=== PATIENT | male | born 1940 | race Caucasian/White ===

== ENCOUNTER 2017-02-07 14:05 | Emergency (ER) | payer MEDICARE, BC ==
--- NOTE | 2017-02-07 14:50 | RAD ---
RIGHT ANKLE THREE VIEWS: History: 76-year-old male with right ankle pain following an injury. FINDINGS: There is some generalized soft tissue swelling of the lower leg and ankle. There is evidence for pes planus with multiple post-surgical jacques stabilizing the subtalar joints including the talar calcan eal joints as well as the calcaneal cuboid joint. There is soft tissue swelling over the anterior asp ect of the foot. Arterial vascular calcifications. Prominent arthrosis changes of the tibial talar cyrus int. No acute fracture. IMPRESSION: Status post subtalar effusion with multiple metallic post-surgical jcaques. Arthrosis changes of the tibiotalar joint. Diffuse soft tissue swelling. No evidence for acute fracture. POS: ALYSSA
[2017-02-07] MEDS ORDERED: HYDROcodone/Acetaminophen 5/325 mg Tablet ONE (15:43)
--- NOTE | 2017-02-07 15:45 | ULT ---
VENOUS DOPPLER ULTRASOUND OF THE RIGHT LOWER EXTREMITY 02/07/17 HISTORY: Right lower extremity pain and edema. TECHNIQUE: Fernando scale ultrasound with color flow and spectral doppler imaging of the deep venous system of the r ight lower extremity was performed. FINDINGS: There is good flow, compression and augmentation noted in the right common femoral, femoral, deep fem oral, popliteal, posterior tibial and greater saphenous veins. IMPRESSION: No evidence of DVT in the right lower extremity. POS: ALYSSA
[2017-02-07] MEDS ORDERED: Ibuprofen 200 MG TAB ONE (15:56)
== END 2017-02-07 16:18 | disposition home or self-care (01) ==
LOC: ERS 14:05
DX: L03.115 Cellulitis of right lower limb (principal); J44.9 Chronic obstructive pulmonary disease, unspecified; I10 Essential (primary) hypertension; F32.9 Major depressive disorder, single episode, unspecified

== ENCOUNTER 2018-11-19 12:25 | Emergency (ER) | payer MEDICARE ==
[2018-11-19 13:10] LABS: #Basophils 0.1 thou/uL (0.0-0.2); #Eosinphils 0.1 thou/uL (0.0-0.7); #Lymphocytes 0.9 thou/uL (1.20-3.40); #Monocytes 0.8 thou/uL (0.11-0.59); #Neutrophils 6.6 thou/uL (1.40-6.50); %Basophils 0.7 % (0.0-1.0); %Eosinophils 0.9 % (0.0-10.0); %Lymphocytes 10.8 % (21.0-51.0); %Monocytes 9.4 % (0.0-10.0); %Neutrophils 78.3 % (42.0-75.0); Hemoglobin 11.9 g/dL (14.0-18.0); Mean Corpuscular HGB CONC 34.2 g/dL (32.0-36.0); Platelet Count 358 thou/uL (130-400); RBC Distribution Width 11.8 % (11.5-14.5); Red Blood Cell (RBC) Count 3.31 mill/uL (4.70-6.10); White Blood Cell (WBC) Count 8.5 thou/uL (4.8-10.8)
--- NOTE | 2018-11-19 13:16 | RAD ---
AP CHEST: Date: 11/19/18 HISTORY: Cellulitis. COMPARISON: 08/11/16. FINDINGS: There is streaky atelectasis and/or infiltrate in both lung bases, similar in appearance to the prior exam. Upper lung choi remain clear. Heart and mediastinum unremarkable with aortic calcification a gain noted. IMPRESSION: Bibasilar atelectasis and/or infiltrates again noted. POS: OFF
[2018-11-19 13:35] LABS: ALT (SGPT) 13 U/L (8-55); AST (SGOT) 21 U/L (5-34); Albumin 3.5 g/dL (3.4-4.8); Alkaline Phosphatase 70 U/L (40-150); Anion Gap 11 mmol/L (10-20); BUN (Urea Nitrogen) 27 mg/dL (8.4-25.7); Bilirubin, Total 0.8 mg/dL (0.2-1.2); Calc. Creatinine Clearance 0 mL/min (70-130); Carbon Dioxide 27 mmol/L (23-31); Chloride 99 mmol/L (98-107); Estimated GFR-MDRD 56; Globulin 2.5 g/dL (2.4-3.5); Glucose 108 mg/dL (83-110); Potassium 3.7 mmol/L (3.5-5.1); Sodium 133 mmol/L (136-145)
[2018-11-19 14:09] LABS: Bilirubin Negative (Negative); Blood, Urine Negative (Negative); Clarity Clear (Clear); Glucose, Urine (Dipstick) Normal (Negative); Leukocyte Negative Leu/uL (Negative); Nitrite Negative (Negative); Protein, Urine (Dipstick) Negative (Neg-Trace); Urobilinogen Normal mg/dL (Less than 2)
[2018-11-19] MEDS ORDERED: Bacitracin 1 PK ONE (15:28)
== END 2018-11-19 18:18 ==
LOC: ERS 12:25
DX: M79.89 Other specified soft tissue disorders (principal); I10 Essential (primary) hypertension; I71.4 Abdominal aortic aneurysm, without rupture; J44.9 Chronic obstructive pulmonary disease, unspecified; F32.9 Major depressive disorder, single episode, unspecified; F03.90 Unspecified dementia, unspecified severity, without behavioral disturbance, psychotic disturbance, mood disturbance, and anxiety
CPT/HCPCS: 36415; 71045; 80053; 80061; 81003; 83605; 85027; 87040; 87070; 87086; 87149; 87205

== ENCOUNTER 2018-12-05 09:55 | Emergency (ER) | payer MEDICARE, BC ==
--- NOTE | 2018-12-05 11:32 | RAD ---
EXAM: Right hip: 2 views INDICATIONS: Pain COMPARISON: 09/03/2018 FINDINGS: Right hip prosthesis again noted. Fracture. No evidence of loosening. IMPRESSION: No acute finding
[2018-12-05] MEDS ORDERED: Acetaminophen/Codeine 30-300mg Tablet ONE (12:04)
--- NOTE | 2018-12-05 13:29 | CT ---
CT PELVIS WITHOUT CONTRAST: Date: 12/05/18 INDICATION: Fall with injury to hips. FINDINGS: Right hip prosthesis. Components appear in adequate position and alignment. Moderate degenerative melonie nge at the left hip. No acute fracture identified. Review of soft tissues reveal mild bladder distention. There is an anterior abdominal wall hernia in the right lower abdomen. Mesentery and small bowel loops herniate through this defect into the subcut aneous tissues. There is no evidence of bowel obstruction or strangulation. Large amount of dense stool in the rectum suggests fecal impaction. There is mild mural thickening wh ich could represent early changes of stercoral colitis. IMPRESSION: 1. No evidence of acute pelvic fracture. 2. Dense stool in a dilated rectum suggesting fecal impaction with early stercoral colitis. 3. Anterior abdominal wall hernia on the right in the lower abdomen, as described. 4. Urinary bladder distention. POS: ALYSSA
--- NOTE | 2018-12-06 08:26 | RAD ---
EXAM: XR Pelvis AP STANDARD PROVIDED CLINICAL HISTORY: Bilateral leg pain and right hip pain. COMPARISON: 10/29/2018 FINDINGS: Right total hip prosthesis is again noted. No obvious hardware complication is seen. The left hip is obtained in external rotation which limits evaluation. No obvious fracture is seen. No dislocation is appreciated. Vascular calcifications and phleboliths again overlie the pelvis. IMPRESSION: 1. No acute osseous abnormality is seen. 2. Right total hip prosthesis again noted.
== END 2018-12-05 14:51 | disposition home or self-care (01) ==
LOC: ERS 09:55
DX: K59.00 Constipation, unspecified (principal); M25.551 Pain in right hip; I10 Essential (primary) hypertension; F03.90 Unspecified dementia, unspecified severity, without behavioral disturbance, psychotic disturbance, mood disturbance, and anxiety; J44.9 Chronic obstructive pulmonary disease, unspecified; F32.9 Major depressive disorder, single episode, unspecified
CPT/HCPCS: 72170; 72192

== ENCOUNTER 2019-02-21 08:15 | Outpatient (CLI) | payer MEDICARE, BC ==
--- NOTE | 2019-02-21 09:11 | MRI ---
MR the lumbar spine without contrast INDICATION: History of severe low back pain with bilateral leg weakness and history of fall COMPARISON: CT of the pelvis dated December 05, 2018 and the lumbar spine radiograph dated October 29 019 TECHNIQUE: Multiplanar multisequence MR images were obtained of lumbar spine without IV contrast. FINDINGS: Bone marrow: There is a moderate wedge compression abnormality of L3 that was demonstrated on the rad iograph in October 2018; however, there is some mild supine. Subendplate edema involving the L3 compression fracture with worsening loss of height since the prior radiograph there is some edema ext ending into the pedicles at L3 with some edematous changes seen surrounding the facet complexes at L2-3. No new fracture is evident. There is ankylosis of the L1-L2 intervertebral level. Distal spinal cord and conus: Normal. The conus seen to terminate at L1. Visualized retroperitoneum and paraspinal soft tissues: There is bilateral moderate hydronephrosis an d hydroureter which was partially seen on the comparison CT the pelvis dated 12/05/[address] the abdomen and pelvis dated August 27, 2016. There is stable prominent distention of the bladder. Vertebral levels: L5-S1: There is a broad-based disc osteophyte complex with facet hypertrophy inducing severe central canal narrowing and moderate bilateral neural foraminal narrowing.. L4-5: There is a broad-based disc osteophyte complex with ligamentum flavum hypertrophy and facet hyp ertrophy inducing severe central canal narrowing and moderate to severe bilateral neural foraminal narrowing. L3-4: There is a broad-based disc osteophyte complex with facet hypertrophy inducing moderate central canal narrowing with severe bilateral neural foraminal narrowing. L2-3: There is some mild retropulsion of bone fragments from the posterior superior margin of L3 in a ddition to disc osteophyte complex at L2-3 inducing moderate central canal narrowing with severe bilateral neural foraminal narrowing. L1-L2: At L1-L2 there is a broad-based osteophyte complex causing mild narrowing of the central canal with moderate narrowing of the neural foramina bilaterally. T12-L1: There is a broad-based disc osteophyte complex with facet hypertrophy inducing mild central c anal narrowing and cooe-ot-cjxtdxly bilateral neural foraminal narrowing IMPRESSION: 1. Severe spondylosis of the lumbar spine with multilevel central canal and neural foraminal narrowin g. The central canal narrowing is most severe at L4-5 and L5-S1 where there is severe central canal narrowing present. There is moderate central canal narrowing present at L1-L2 and L2-L3. 2. Multilevel prominent neural foraminal narrowing as detailed above. 3. Acute on chronic L3 wedge compression fracture with further loss of height in the vertebral body w hen compared to the prior lumbar radiograph in October 2018. There is approximately a 50% loss in height along the anterior and central aspect of the vertebral body. 4. Stable chronic moderate bilateral hydronephrosis and hydroureter with prominent distention the bernarda dder partially visualized on a CT of the pelvis dated 12/05/2018. This was also present on a CTA of the abdomen and pelvis performed on August 27, 2016. Findings are suspicious of sequela of chronic blad swati outlet obstruction.
== END 2019-02-21 08:16 | disposition home or self-care (01) ==
LOC: MRI 08:15
PROVIDERS: ATTEND Family Medicine
DX: Z01.818 Encounter for other preprocedural examination (principal); M47.816 Spondylosis without myelopathy or radiculopathy, lumbar region; M48.061 Spinal stenosis, lumbar region without neurogenic claudication; M48.07 Spinal stenosis, lumbosacral region; S32.030D Wedge compression fracture of third lumbar vertebra, subsequent encounter for fracture with routine healing; N13.30 Unspecified hydronephrosis; N13.4 Hydroureter
CPT/HCPCS: 72148

== ENCOUNTER 2019-03-03 11:56 | Inpatient (IN) | payer MEDICARE, BC ==
[2019-03-03 12:38] LABS: #Basophils 0.1 thou/uL (0.0-0.2); #Eosinphils 0.3 thou/uL (0.0-0.7); #Lymphocytes 1.5 thou/uL (1.20-3.40); #Monocytes 0.8 thou/uL (0.11-0.59); #Neutrophils 6.2 thou/uL (1.40-6.50); %Basophils 0.6 % (0.0-1.0); %Eosinophils 3.1 % (0.0-10.0); %Lymphocytes 17.2 % (21.0-51.0); %Monocytes 8.6 % (0.0-10.0); %Neutrophils 70.5 % (42.0-75.0); Hemoglobin 13.8 g/dL (14.0-18.0); Mean Corpuscular HGB CONC 33.2 g/dL (32.0-36.0); Mean Corpuscular Hemoglobin 34.4 pg (27.0-31.0); Mean Platelet Volume 6.3 fL (7.4-10.4); Platelet Count 412 thou/uL (130-400); RBC Distribution Width 12.4 % (11.5-14.5); Red Blood Cell (RBC) Count 4.02 mill/uL (4.70-6.10); White Blood Cell (WBC) Count 8.8 thou/uL (4.8-10.8)
--- NOTE | 2019-03-03 12:57 | RAD ---
3 views right foot: 03/03/2019 COMPARISON: None HISTORY: Prominent foot wound with exposed bone FINDINGS: The bones are demineralized, limiting detailed assessment. There is a pes planus deformity. Severe subtalar joint degenerative change. There is fusion at the daly btalar joint as well. Postoperative metallic hardware overlies the hindfoot and midfoot. There is a suggestion of a prominent skin defect adjacent to the fifth metatarsal phalangeal joint. T here is a suggestion of possible bone destruction centered at the fifth metatarsal phalangeal joint, which may signify osteomyelitis/septic arthritis. MRI is suggested for full assessment. Of note, there is prominent dorsal soft tissue swelling involving the midfoot and forefoot. This sugg ests associated cellulitis. Detailed assessment at the level of the fifth metatarsal phalangeal joint is limited secondary to rey ear radiopaque artifact, which may be on the skin surface. IMPRESSION: Findings suspicious for possible osteomyelitis and/or septic arthritis centered at the fi fth metatarsal phalangeal joint. MRI suggested.
[2019-03-03 13:08] LABS: AST (SGOT) 20 U/L (5-34); Albumin 3.7 g/dL (3.4-4.8); Anion Gap 11 mmol/L (10-20); Bilirubin, Total 0.7 mg/dL (0.2-1.2); Calc. Creatinine Clearance 0 mL/min (70-130); Calcium 9.7 mg/dL (7.8-10.44); Carbon Dioxide 30 mmol/L (23-31); Chloride 97 mmol/L (98-107); Estimated GFR-MDRD 90; Globulin 3.6 g/dL (2.4-3.5); Potassium 4.1 mmol/L (3.5-5.1); Protein, Total 7.3 g/dL (5.8-8.1); Sodium 134 mmol/L (136-145)
[2019-03-03 13:19] LABS: ALT (SGPT) 12 U/L (8-55); Alkaline Phosphatase 84 U/L (40-110); BUN (Urea Nitrogen) 17 mg/dL (8.4-25.7); Glucose 99 mg/dL (83-110)
[2019-03-03] MEDS ORDERED: Cefepime 2 GM VIAL ONE (15:55)
[2019-03-03] MEDS ORDERED: Senokot S 8.6-50 MG TAB PO PRN (16:10)
[2019-03-03] MEDS ORDERED: Fentanyl 100 MCG/2 ML VIAL ONE (17:05)
[2019-03-03] MEDS ORDERED: Ondansetron PF 4 MG/2 ML Vial ONE (17:05)
--- NOTE | 2019-03-03 19:20 | PDOC.HHP ---
Hospitalist HPI - History of Present Illness Right foot wound History of Present Illness: Patient is a poor historian, family at the bedside is main source of information , patient has dementia and mentation is at baseline per family. Patient has been going to wound care doctor in [place] for several month, every other week. Wound care nurses at the [facility] change dressing MWF. Today, patient went to Wound care doctor appointment and then was referred here for evaluation as wound looks worse than before. Concern for infection and osteomyelitis. Has PVD, had wounds to left foot but those have healed. PMH: BPH, HTN, peripheral neuropathy, dementia, dyslipidemia, PVD, Afib, SVT, COPD, GERD, renal cysts ED Course: XRAY of right foot concerning for osteomyelitis, no elevated WBC, given cefepime and vancomycin in the ED. Will be admitted for IV ABX and MRI. Hospitalist ROS - Review of Systems ROS unobtainable: due to mental status Constitutional: denies: fever, chills, sweats, weakness, malaise, other Musculoskeletal: reports: foot pain (Patient is pleasantly confused, limited history obtained from family member at bedside) Hospitalist History - Past Medical History Source: longterm record Cardiac: reports: AFIB, CAD, HTN, Hyperlipidemia Pulmonary: reports: COPD, hypertension BUSINESS CONTINUITY PLANNER: reports: Dementia Gastrointestinal: reports: GERD Musculoskeletal: reports: Chronic low back pain - Past Surgical History Past Surgical History: reports: Cystoscopy, Total Knee Replacement Other Surgical History: triple AAA repair, bowel resection - Social History Smoking Status: Never smoker Drugs: reports: none Living Situation: Skilled Nursing Activity level: wheelchair bound - Exam General Appearance: awake alert Eye: PERRL, anicteric sclera ENT: normocephalic atraumatic, dry oral mucosa Neck: supple, no JVD Heart: RRR, no murmur Respiratory: CTAB, normal chest expansion Gastrointestinal: soft, non-tender Extremities: 1+ LE edema Extremities - other findings: LE dusky, 4cm open malodorous wound to lateral right foot Skin: normal turgor Neurological: normal sensation to touch Musculoskeletal: normal tone, normal strength Psychiatric: oriented to person Psychiatric - other findings: pleasantly confused Hospitalist Results - Labs Result Diagrams: 03/03/19 12:20 03/03/19 12:20 Lab results: WBC 8.8 thou/uL (4.8-10.8) 12/30/19 12:20 Hgb 13.8 g/dL (14.0-18.0) L 03/03/19 12:20 Hct 41.6 % (42.0-52.0) L 03/03/19 12:20 MCV 104.0 fL (78.0-98.0) H 03/03/19 12:20 Plt Count 412 thou/uL (130-400) H 03/03/19 12:20 Neutrophils % 70.5 % (42.0-75.0) 03/03/19 12:20 ESR Westergren 29 mm/hr (Less than 20) 03/03/19 12:20 Sodium 134 mmol/L (136-145) L 03/03/19 12:20 Potassium 4.1 mmol/L (3.5-5.1) 03/03/19 12:20 Chloride 97 mmol/L (98-107) L 03/03/19 12:20 Carbon Dioxide 30 mmol/L (23-31) 03/03/19 12:20 BUN 17 mg/dL (8.4-25.7) 03/03/19 12:20 Creatinine 0.82 mg/dL (0.7-1.3) 03/03/19 12:20 Glucose 99 mg/dL (83-110) 03/03/19 12:20 Calcium 9.7 mg/dL (7.8-10.44) 03/03/19 12:20 Total Bilirubin 0.7 mg/dL (0.2-1.2) 03/03/19 12:20 AST 20 U/L (5-34) 03/03/19 12:20 ALT 12 U/L (8-55) 03/03/19 12:20 Alkaline Phosphatase 84 U/L (40-110) 03/03/19 12:20 C-Reactive Protein 1.79 mg/dL (= or < 0.5) H 03/03/19 12:20 Serum Total Protein 7.3 g/dL (5.8-8.1) 03/03/19 12:20 Albumin 3.7 g/dL (3.4-4.8) 03/03/19 12:20 Hospitalist H&P A/P - Problem (1) Dementia Code(s): F03.90 - UNSPECIFIED DEMENTIA WITHOUT BEHAVIORAL DISTURBANCE Status: Chronic (2) Wound of foot Code(s): S91.309A - UNSPECIFIED OPEN WOUND, UNSPECIFIED FOOT, INITIAL ENCOUNTER Status: Acute (3) Anxiety Code(s): F41.9 - ANXIETY DISORDER, UNSPECIFIED Status: Chronic (4) Dyslipidemia Code(s): E78.5 - HYPERLIPIDEMIA, UNSPECIFIED Status: Chronic (5) HTN (hypertension) Code(s): I10 - ESSENTIAL (PRIMARY) HYPERTENSION Status: Chronic Qualifiers: Hypertension type: essential hypertension Qualified Code(s): I10 - Essential (primary) hypertension (6) BPH (benign prostatic hyperplasia) Code(s): N40.0 - BENIGN PROSTATIC HYPERPLASIA WITHOUT LOWER URINRY TRACT SYMP Status: Acute - Plan Plan: Continue ABX - Cefepime and Vancomycin, blood and wound cultures pending MRI right foot, Dr. Faye consulted, Continue home meds once reconciled IV hydration, NS 75mls/hr Wound care consult GI and DVT prevention
[2019-03-03 19:29] VITALS: BMI 30.5
[2019-03-03] MEDS: Sodium Chloride 0.9% 1,000 ML IV SCH (19:32)
[2019-03-03] MEDS: Acetaminophen 325 MG TAB PO PRN (19:37)
[2019-03-03] MEDS: Famotidine 20 MG TAB PO SCH (19:37)
[2019-03-04] MEDS: Acetaminophen/Codeine 30-300mg Tablet PO PRN ×2 (01:19→20:12)
[2019-03-04] MEDS: Cefepime 2 GM in Sodium Chloride 0.9% 100 ML IVPB SCH ×2 (04:05→16:34)
[2019-03-04] MEDS: Sodium Chloride 0.9% 1,000 ML IV SCH ×2 (06:06→16:34)
[2019-03-04 06:21] LABS: #Basophils 0.1 thou/uL (0.0-0.2); #Eosinphils 0.5 thou/uL (0.0-0.7); #Lymphocytes 1.4 thou/uL (1.20-3.40); #Monocytes 0.9 thou/uL (0.11-0.59); #Neutrophils 4.4 thou/uL (1.40-6.50); %Eosinophils 6.4 % (0.0-10.0); %Lymphocytes 18.8 % (21.0-51.0); %Monocytes 12.7 % (0.0-10.0); Hemoglobin 10.9 g/dL (14.0-18.0); Mean Corpuscular HGB CONC 30.3 g/dL (32.0-36.0); Mean Corpuscular Hemoglobin 31.7 pg (27.0-31.0); Platelet Count 370 thou/uL (130-400); RBC Distribution Width 12.4 % (11.5-14.5); Red Blood Cell (RBC) Count 3.46 mill/uL (4.70-6.10); White Blood Cell (WBC) Count 7.2 thou/uL (4.8-10.8)
[2019-03-04 06:40] LABS: Anion Gap 10 mmol/L (10-20); BUN (Urea Nitrogen) 16 mg/dL (8.4-25.7); Calc. Creatinine Clearance 120 mL/min (70-130); Calcium 8.7 mg/dL (7.8-10.44); Carbon Dioxide 26 mmol/L (23-31); Chloride 106 mmol/L (98-107); Estimated GFR-MDRD Greater than 90; Glucose 107 mg/dL (83-110); Potassium 3.8 mmol/L (3.5-5.1); Sodium 138 mmol/L (136-145)
[2019-03-04] MEDS: Famotidine 20 MG TAB PO SCH ×2 (07:58→20:11)
[2019-03-04] MEDS: Amiodarone 200 MG TAB PO SCH (07:58)
[2019-03-04] MEDS: Escitalopram Oxalate 10 mg Tablet PO SCH (07:58)
[2019-03-04] MEDS: Hydrochlorothiazide 25 MG TAB PO SCH (07:58)
[2019-03-04] MEDS: Aspirin Chewable 81 MG TAB PO SCH (07:58)
[2019-03-04] MEDS: Enoxaparin Sodium 40 MG/0.4 ML SYRINGE SC SCH (08:01)
[2019-03-04] MEDS ORDERED: Docusate 100 MG CAP PO PRN (08:57)
--- NOTE | 2019-03-04 09:10 | PDOC.HOSPP ---
- Subjective Subjective: Mr. Anderson is lying down comfortably in bed. Right foot wound foul smelling. No fever, chills, nausea, vomiting reported at night. - Objective Vital Signs & Weight: Vital Signs (12 hours) Temp Pulse Resp BP BP Pulse Ox 03/04/19 07:31 98.2 F 65 20 134/79 97 03/04/19 05:00 97.8 F 58 L 18 107/63 97 03/04/19 00:00 98.2 F 66 20 111/65 96 Weight Weight 225 lb 4.8 oz I&O: 03/03/19 03/04/19 03/05/19 06:59 06:59 06:59 Intake Total 1800 Balance 1800 Result Diagrams: 03/04/19 05:27 03/04/19 05:27 Hospitalist ROS - Review of Systems Constitutional: denies: fever, chills, sweats, weakness, malaise, other Respiratory: denies: cough, dry, shortness of breath, hemoptysis, SOB with excertion, pleuritic pain, sputum, wheezing, other Cardiovascular: denies: chest pain, palpitations, orthopnea, paroxysmal noc. dyspnea, edema, light headedness, other Gastrointestinal: denies: nausea, vomiting, abdominal pain, diarrhea, constipation, melena, hematochezia, other - Medication Medications: Active Medications Generic Name Dose Route Start Last Admin Trade Name Freq PRN Reason Stop Dose Admin Acetaminophen 650 mg 03/03/19 16:10 03/03/19 19:37 Tylenol PO 650 mg Q4H PRN Administration Headache/Fever/Mild Pain (1-3) Acetaminophen/Codeine Phosphate 1 tab 03/03/19 22:47 03/04/19 01:19 Tylenol #3 PO 1 tab Q6HR PRN Administration Moderate to Severe Pain (6-10) Amiodarone HCl 100 mg 03/04/19 09:00 03/04/19 07:58 Cordarone PO 100 mg QAM JOSE Administration Aspirin 81 mg 03/04/19 09:00 03/04/19 07:58 Aspirin Chewable PO 81 mg DAILY JOSE Administration Enoxaparin Sodium 40 mg 03/04/19 09:00 03/04/19 08:01 Lovenox SC 40 mg 0900 JOSE Administration Escitalopram Oxalate 5 mg 03/04/19 09:00 03/04/19 07:58 Lexapro PO 5 mg DAILY JOSE Administration Famotidine 20 mg 03/03/19 21:00 03/04/19 07:58 Pepcid PO 20 mg BID JOSE Administration Hydrochlorothiazide 25 mg 03/04/19 09:00 03/04/19 07:58 Hydrochlorothiazide PO 25 mg DAILY JOSE Administration Sodium Chloride 1,000 mls @ 75 mls/hr 03/03/19 16:15 03/04/19 06:06 Normal Saline 0.9% IV Not Given .[id number] JOSE Cefepime HCl 2 gm/ Sodium 100 mls @ 200 mls/hr 03/04/19 04:00 03/04/19 04:05 Chloride IVPB 100 mls 0400,1600 JOSE Administration Sodium Chloride 10 ml 03/03/19 16:10 03/03/19 19:46 Flush - Normal Saline IVF 10 ml PRN PRN Administration Saline Flush - Exam General Appearance: NAD, awake alert Eye: PERRL, anicteric sclera ENT: normocephalic atraumatic, no oropharyngeal lesions, moist mucosa Neck: supple, symmetric, no JVD, no thyromegaly, no lymphadenopathy, no carotid bruit Heart: RRR, no murmur, no gallops, no rubs, normal peripheral pulses Respiratory: CTAB, no wheezes, no rales, no ronchi, normal chest expansion, no tachypnea, normal percussion Gastrointestinal: soft, non-tender, non-distended, normal bowel sounds, no palpable masses, no hepatomegaly, no splenomegaly, no bruit Extremities - other findings: Right food ulcer, lateral, base of 5th toe, foul smelling, surrounding red Skin: normal turgor, no rashes Neurological: cranial nerve grossly intact, normal sensation to touch, no weakness, no focal deficits, no new deficit Musculoskeletal: normal tone, normal strength, no muscle wasting Psychiatric: normal affect, normal behavior, A&O x 3 Hosp A/P (1) Wound of foot Code(s): S91.309A - UNSPECIFIED OPEN WOUND, UNSPECIFIED FOOT, INITIAL ENCOUNTER Status: Acute Plan: Possible osteo on XR of foot vs. septic arthritis (2) Dementia Code(s): F03.90 - UNSPECIFIED DEMENTIA WITHOUT BEHAVIORAL DISTURBANCE Status: Chronic (3) BPH (benign prostatic hyperplasia) Code(s): N40.0 - BENIGN PROSTATIC HYPERPLASIA WITHOUT LOWER URINRY TRACT SYMP Status: Chronic (4) Atrial fibrillation with controlled ventricular response Code(s): I48.91 - UNSPECIFIED ATRIAL FIBRILLATION Status: Chronic (5) HTN (hypertension) Code(s): I10 - ESSENTIAL (PRIMARY) HYPERTENSION Status: Chronic Qualifiers: Hypertension type: essential hypertension Qualified Code(s): I10 - Essential (primary) hypertension - Plan Wound foul smelling and necrotic, XR suggestive of possible osteo/septic foot. Patient unable to lay still in MRI, has dementia at baseline Coordinate further management as per surgery and infectious disease specialist Wound culture showing multiple subspecies, following blood culture Continue Vancomycin and Cefepime Continue home BPH meds Continue home anti-hypertensive medications Continue wound care DVT Prophyalxis: Lovenox Code Statu: Full Dispo: Pending further reccs from surgery and ID teams. Continue eval and tx at this time.
[2019-03-04] MEDS: Acetaminophen 325 MG TAB PO PRN (13:09)
[2019-03-04] MEDS: Valsartan 80 MG TAB PO SCH (13:10)
[2019-03-04] MEDS ORDERED: Polyvinyl Alcohol 1.4%/Povidone 0.6% Opth Drops EA EYE PRN (15:00)
--- NOTE | 2019-03-04 16:11 | CON ---
DATE OF CONSULTATION: REASON FOR CONSULTATION: Ulcer of right foot with exposed bone, inflammatory changes. HISTORY OF PRESENT ILLNESS: An 79-year-old with history of BPH, hypertension, urinary retention, and dementia most likely due to peripheral vascular disease with previous AAA repair, who has had a chronic ulcer in the right foot and developed bone exposure associated with gangrenous changes and he was admitted for management. He does not recall much because of his dementia. He could not tell me where he was or what the reason he was in the hospital. He denied headaches. No dyspnea or chest pain. No abdominal pain. He did have pain in the right foot when the area was pressed. No vomiting or diarrhea. 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 SOCIAL HISTORY: He lives in the [place]. Could not remember any more of his history. No smoking reported in the note. ALLERGIES: HYDROCODONE. FAMILY HISTORY: Noncontributory. CURRENT MEDICATIONS: 1. Cordarone. 2. Aspirin. 3. Lipitor. 4. Cefepime. 5. Enoxaparin. 6. Lovenox. 7. Pepcid. 8. Valsartan. 9. Vancomycin. PHYSICAL EXAMINATION: VITAL SIGNS: T-max 98.2, blood pressure 117/56, pulse 58, respirations 18 to 22 , O2 saturation 98. GENERAL: Awake and alert. Does not appear in distress, is oriented, but not agitated, follows commands, pleasant. SKIN: Areas of mild erythema in the lower extremities, probably associated with stasis changes. He had this irregular shaped ulcer with necrotic base and wide area of a bone exposure at the fifth metatarsal head, right foot. Surrounding erythema undermining. No lymphadenopathy. Ocular movements conjugate. Oral cavity is not remarkable. NECK: Supple. No jugular vein distention. LUNGS: Symmetric. Clear breath sounds. HEART: S1 and S2, regular rate. No S3 or S4. ABDOMEN: Soft, not distended or tender. Question of bladder distention. No organomegaly or ascites. EXTREMITIES: I could not identify popliteal pulses or dorsalis pedis, looks like they are dopplerable only. He is diffusely weak. He is able to move extremities on command. NEUROLOGIC: He knows his name, but that is the extent of his ability to orientate himself. Recollection is very poor and he has difficulty in finding words. LABORATORY DATA: Sodium 134 and 138. Creatinine is normal. Liver profile normal. CRP 1.79, albumin 3.7. White cell count is 8.8 and 7.2, hemoglobin 10.9, MCV 105, platelet count 370 with 61% neutrophils. Microbiology with gram-negative armen from the foot ulcer culture. Blood cultures, no growth thus far. IMAGING STUDIES: Foot x-ray from yesterday with the bone destruction of the fifth metatarsal head. ASSESSMENT: Chronic ulcer of right foot fifth MPJ, skin site with bone exposure and gangrene, peripheral vascular disease, prior AAA repair, dementia. DISCUSSION: The patient will need a vascular study, but this is heading towards amputation. He is at risk for BK amputation depending on the results of the vascular study. Add Flagyl to current regimen. Continue remainder of antimicrobials, but those are just ancillary interventions, so the mainstay will be surgical radical procedure. We will have to postpone this until we have results of his vascular study, may need an angiogram. His last one was done in 2017 and it showed adequate blood flow, although small vessel disease was noted below the level of the popliteal arteries. Job ID: [id number] [facility]
[2019-03-04] MEDS ORDERED: traMADol HCl 50 MG TAB PO PRN (16:57)
[2019-03-04 17:53] LABS: RBC/HPF 0-3 HPF (0-3); Squamous Epithelial 0-3 HPF (0-3)
[2019-03-04 17:56] LABS: Bilirubin Negative (Negative); Blood, Urine Negative (Negative); Glucose, Urine (Dipstick) Negative (Negative); Leukocyte Trace (Negative); Nitrite Negative (Negative); Protein, Urine (Dipstick) Negative (Neg-Trace); Urobilinogen 0.2 mg/dL (Less than 2)
--- NOTE | 2019-03-04 17:57 | CON ---
DATE OF CONSULTATION: HISTORY OF PRESENT ILLNESS: Alonso Anderson is an 79-year-old male patient, senior living resident, who wants to get back to the senior living as soon as possible. The patient has developed a wound over his lateral right foot. X-rays demonstrating osteomyelitis with metatarsal head exposed through a large wound. He has palpable pedal pulses. He is on vancomycin and cefepime. He is not a diabetic. Plan is amputation of the right fifth toe and metatarsal wound left open for healing by secondary intention wound VAC application. He can be discharged home on oral antibiotics. The patient is relatively immobile and this is probably a combination of immobility and decubitus problems. He is at risk for other such problems in his left foot. ALLERGIES: HYDROCODONE. SOCIAL HISTORY: Tobacco cessation many years ago. Alcohol cessation many years ago. HOME MEDICATIONS: 1. Flomax. 2. Tylenol. 3. Fleet enema. 4. Vitamin C. 5. Colace. 6. Amiodarone. 7. Ecotrin 81 mg a day. 8. Potassium chloride daily. 9. Escitalopram oxalate daily. 10. Melatonin. 11. Hydrocortisone topical cream. 12. Benadryl orally. PAST SURGICAL HISTORY: Hip replacement, bilateral knee replacements, AAA repair, and bowel resection. PAST MEDICAL HISTORY: BPH, hypertension, neuropathy, dementia, history of AAA, COPD, venous insufficiency, dyslipidemia, GERD, and poor historian. Echocardiogram on 08/04/2016, 65% EF, normal LV function, no significant valvular disease. Sleep apnea and hypertension. No history of heart disease known. PHYSICAL EXAMINATION: VITAL SIGNS: 6 feet tall, 225 pounds, and 30 BMI. 98.3, 55, and 129/54. LUNGS: Clear to auscultation. CARDIAC: Regular rate and rhythm without murmur or gallop. ABDOMEN: Soft and obese. EXTREMITIES: Palpable pedal pulses. Right lateral foot 3 to 4 cm open wound with exposed metatarsal head fifth. ASSESSMENT AND PLAN: Osteomyelitis right fifth metatarsal. Plan amputation of the right fifth toe and other toes as indicated. He understands risks and benefits, consent. Wound VAC will be applied postoperatively. He can be discharged home with oral antibiotics as an outpatient and inpatient, wound care in the senior living with followup in my office in 2 to 3 weeks. Job ID: [id number]
[2019-03-04 17:58] LABS: Clarity Hazy (Clear)
[2019-03-04 18:07] LABS: Bacteria/HPF 2+ HPF (None Seen)
[2019-03-04 18:08] LABS: Mucous/LPF 1+ LPF (<2+)
[2019-03-04] MEDS ORDERED: Vancomycin 1.5 GRAM/300 ML BAG 1.5 GM in Premix Bag 1 BAG IVPB SCH (20:00)
[2019-03-04] MEDS: metroNIDAZOLE 500 MG TAB PO SCH (20:11)
[2019-03-04] MEDS: Atorvastatin Calcium 10 MG TAB PO SCH (20:12)
[2019-03-04] MEDS: Tamsulosin HCl 0.4 MG CAP PO SCH (20:12)
[2019-03-04] MEDS ORDERED: Prevnar 13-Val Conj/PF 0.5 ML SYRINGE IM ONE (21:00)
[2019-03-04] MEDS: traMADol HCl 50 MG TAB PO PRN (21:33)
[2019-03-05] MEDS: Cefepime 2 GM in Sodium Chloride 0.9% 100 ML IVPB SCH ×2 (03:15→16:48)
[2019-03-05] MEDS: traMADol HCl 50 MG TAB PO PRN (04:53)
--- NOTE | 2019-03-05 08:15 | ULT ---
EXAM: Right lower extremity arterial ultrasound HISTORY: Peripheral vascular disease and right foot ulcer with bone exposure COMPARISON: None TECHNIQUE: Multiplanar grayscale and color Doppler images were obtained and a right lower extremity a rterial ultrasound. Spectral analysis of the Doppler waveforms were performed. FINDINGS: No significant calcified plaque is seen in right lower extremity. Right lower extremity: Common femoral artery: Biphasic Profundofemoral artery: Monophasic Superficial femoral artery: Biphasic Popliteal artery: Monophasic Anterior tibial artery: Monophasic Posterior tibial artery: Biphasic Dorsalis pedis artery: Unable to be visualized secondary to overlying bandages. No significant increase in velocity is seen from a more proximal to a distal segment to suggest an ar ea of focal atherosclerotic disease. IMPRESSION: Diffuse abnormal waveforms suggest diffuse atherosclerotic disease. No focal increase in velocity is seen to suggest an area of focal stenosis.
[2019-03-05] MEDS: Sodium Chloride 0.9% 1,000 ML IV SCH ×2 (08:47→20:34)
--- NOTE | 2019-03-05 10:19 | PDOC.HOSPP ---
- Subjective Subjective: No complaints this AM. He is NPO for procedure. No overnight issues. - Objective Vital Signs & Weight: Vital Signs (12 hours) Temp Pulse Resp BP Pulse Ox 03/05/19 08:10 90 L 03/05/19 07:40 97.6 F 64 18 127/76 90 L 03/05/19 05:08 97.5 F L 54 L 20 118/66 97 Weight Admit Weight 225 lb 4.8 oz Weight 225 lb 4.8 oz I&O: 03/04/19 03/05/19 03/06/19 06:59 06:59 06:59 Intake Total 1800 2160 Output Total 300 Balance 1800 1860 Result Diagrams: 03/04/19 05:27 03/04/19 05:27 Hospitalist ROS - Review of Systems Constitutional: denies: fever, chills, sweats, weakness, malaise, other Respiratory: denies: cough, dry, shortness of breath, hemoptysis, SOB with excertion, pleuritic pain, sputum, wheezing, other Cardiovascular: denies: chest pain, palpitations, orthopnea, paroxysmal noc. dyspnea, edema, light headedness, other Gastrointestinal: denies: nausea, vomiting, abdominal pain, diarrhea, constipation, melena, hematochezia, other - Medication Medications: Active Medications Generic Name Dose Route Start Last Admin Trade Name Freq PRN Reason Stop Dose Admin Acetaminophen/Codeine Phosphate 1 tab 03/03/19 22:47 03/04/19 20:12 Tylenol #3 PO 1 tab Q6HR PRN Administration Moderate to Severe Pain (6-10) Amiodarone HCl 100 mg 03/04/19 09:00 03/04/19 07:58 Cordarone PO 100 mg QAM JOSE Administration Aspirin 81 mg 03/04/19 09:00 03/04/19 07:58 Aspirin Chewable PO 81 mg DAILY JOSE Administration Atorvastatin Calcium 10 mg 03/04/19 21:00 03/04/19 20:12 Lipitor PO 10 mg HS JOSE Administration Enoxaparin Sodium 40 mg 03/04/19 09:00 03/04/19 08:01 Lovenox SC 40 mg 0900 JOSE Administration Escitalopram Oxalate 5 mg 03/04/19 09:00 03/04/19 07:58 Lexapro PO 5 mg DAILY JOSE Administration Famotidine 20 mg 03/03/19 21:00 03/04/19 20:11 Pepcid PO 20 mg BID JOSE Administration Hydrochlorothiazide 25 mg 03/04/19 09:00 03/04/19 07:58 Hydrochlorothiazide PO 25 mg DAILY JOSE Administration Sodium Chloride 1,000 mls @ 75 mls/hr 03/03/19 16:15 03/05/19 08:47 Normal Saline 0.9% IV 1,000 mls .[id number] JOSE Administration Cefepime HCl 2 gm/ Sodium 100 mls @ 200 mls/hr 03/04/19 04:00 03/05/19 03:15 Chloride IVPB 100 mls 0400,1600 JOSE Administration Vancomycin HCl 1.5 gm/ Device 300 mls @ 200 mls/hr 03/04/19 20:00 03/04/19 20 :13 IVPB 300 mls 2000 JOSE Administration Metronidazole 500 mg 03/04/19 21:00 03/04/19 20:11 Flagyl PO 500 mg TID JOSE Administration Sodium Chloride 10 ml 03/03/19 16:10 03/03/19 19:46 Flush - Normal Saline IVF 10 ml PRN PRN Administration Saline Flush Tamsulosin HCl 0.4 mg 03/04/19 21:00 03/04/19 20:12 Flomax PO 0.4 mg HS JOSE Administration Tramadol HCl 50 mg 03/04/19 21:13 03/05/19 04:53 Ultram PO 50 mg Q4H PRN Administration Mild-Moderate Pain (1-5) Valsartan 160 mg 03/04/19 09:00 03/04/19 13:10 Diovan PO 160 mg DAILY JOSE Administration - Exam General Appearance: NAD, awake alert Eye: PERRL ENT: normocephalic atraumatic Neck: supple, no JVD Heart: RRR, no murmur, no gallops Respiratory: CTAB, no wheezes, no rales Gastrointestinal: soft, non-tender, non-distended, normal bowel sounds Extremities - other findings: Right food ulcer, lateral, base of 5th toe, foul smelling, surrounding red Neurological: normal sensation to touch, no weakness Psychiatric: normal affect, normal behavior, oriented to person Hosp A/P (1) Wound of foot Code(s): S91.309A - UNSPECIFIED OPEN WOUND, UNSPECIFIED FOOT, INITIAL ENCOUNTER Status: Acute (2) Dementia Code(s): F03.90 - UNSPECIFIED DEMENTIA WITHOUT BEHAVIORAL DISTURBANCE Status: Chronic (3) BPH (benign prostatic hyperplasia) Code(s): N40.0 - BENIGN PROSTATIC HYPERPLASIA WITHOUT LOWER URINRY TRACT SYMP Status: Chronic (4) Atrial fibrillation with controlled ventricular response Code(s): I48.91 - UNSPECIFIED ATRIAL FIBRILLATION Status: Chronic (5) HTN (hypertension) Code(s): I10 - ESSENTIAL (PRIMARY) HYPERTENSION Status: Chronic Qualifiers: Hypertension type: essential hypertension Qualified Code(s): I10 - Essential (primary) hypertension - Plan Wound foul smelling and necrotic, XR suggestive of possible osteo/septic foot. Patient unable to lay still in MRI, has dementia at baseline Surgery planning amputation of toe and I&D today Wound culture showing multiple subspecies, following blood culture Continue Vancomycin and Cefepime Continue home BPH meds Continue home anti-hypertensive medications Continue wound care DVT Prophyalxis: Lovenox Code Statu: Full Dispo: Pending further reccs from surgery and ID teams. For surgery today.
[2019-03-05] MEDS ORDERED: PROPOFOL 200 MG/20 ML VIAL ONE (11:04)
[2019-03-05] MEDS: Amiodarone 200 MG TAB PO SCH (11:20)
[2019-03-05] MEDS: Aspirin Chewable 81 MG TAB PO SCH (11:20)
[2019-03-05] MEDS: Enoxaparin Sodium 40 MG/0.4 ML SYRINGE SC SCH (11:21)
[2019-03-05] MEDS: Famotidine 20 MG TAB PO SCH ×2 (11:21→20:33)
[2019-03-05] MEDS: Escitalopram Oxalate 10 mg Tablet PO SCH (11:21)
[2019-03-05] MEDS: metroNIDAZOLE 500 MG TAB PO SCH ×3 (11:22→20:33)
[2019-03-05] MEDS: Hydrochlorothiazide 25 MG TAB PO SCH (11:22)
[2019-03-05] MEDS: Valsartan 80 MG TAB PO SCH (11:22)
[2019-03-05] MEDS ORDERED: Fentanyl 100 MCG/2 ML VIAL ONE (15:13)
[2019-03-05] MEDS ORDERED: PROPOFOL 20 ML ONE (15:13)
[2019-03-05 19:26] LABS: Vancomycin, Trough 8.4 ug/mL
[2019-03-05] MEDS: Atorvastatin Calcium 10 MG TAB PO SCH (20:33)
[2019-03-05] MEDS: Tamsulosin HCl 0.4 MG CAP PO SCH (20:33)
[2019-03-05] MEDS: Acetaminophen/Codeine 30-300mg Tablet PO PRN (22:50)
[2019-03-06] MEDS ORDERED: Cefepime 2 GM, Admixture Fee 1 EACH in Sodium Chloride 0.9% 100 ML IVPB SCH (04:00)
[2019-03-06] MEDS: Cefepime 2 GM in Sodium Chloride 0.9% 100 ML IVPB SCH ×2 (04:32→16:20)
[2019-03-06 06:31] LABS: #Basophils 0.1 thou/uL (0.0-0.2); #Eosinphils 0.3 thou/uL (0.0-0.7); #Lymphocytes 1.2 thou/uL (1.20-3.40); #Monocytes 0.9 thou/uL (0.11-0.59); #Neutrophils 5.8 thou/uL (1.40-6.50); %Eosinophils 3.6 % (0.0-10.0); %Lymphocytes 14.1 % (21.0-51.0); %Monocytes 11.3 % (0.0-10.0); %Neutrophils 70.1 % (42.0-75.0); Hemoglobin 11.1 g/dL (14.0-18.0); Mean Corpuscular HGB CONC 32.2 g/dL (32.0-36.0); Mean Corpuscular Hemoglobin 32.9 pg (27.0-31.0); Mean Platelet Volume 5.9 fL (7.4-10.4); Platelet Count 334 thou/uL (130-400); RBC Distribution Width 12.2 % (11.5-14.5); Red Blood Cell (RBC) Count 3.38 mill/uL (4.70-6.10); White Blood Cell (WBC) Count 8.2 thou/uL (4.8-10.8)
[2019-03-06 06:50] LABS: Anion Gap 12 mmol/L (10-20); BUN (Urea Nitrogen) 11 mg/dL (8.4-25.7); Calc. Creatinine Clearance 118 mL/min (70-130); Calcium 8.4 mg/dL (7.8-10.44); Carbon Dioxide 24 mmol/L (23-31); Chloride 106 mmol/L (98-107); Estimated GFR-MDRD Greater than 90; Glucose 114 mg/dL (83-110); Potassium 3.5 mmol/L (3.5-5.1); Sodium 138 mmol/L (136-145)
[2019-03-06] MEDS: Famotidine 20 MG TAB PO SCH ×2 (08:25→20:10)
[2019-03-06] MEDS: Hydrochlorothiazide 25 MG TAB PO SCH (08:26)
[2019-03-06] MEDS: Escitalopram Oxalate 10 mg Tablet PO SCH (08:26)
[2019-03-06] MEDS: metroNIDAZOLE 500 MG TAB PO SCH ×3 (08:26→20:10)
[2019-03-06] MEDS: Aspirin Chewable 81 MG TAB PO SCH (08:28)
[2019-03-06] MEDS: Valsartan 80 MG TAB PO SCH (08:28)
[2019-03-06] MEDS: Amiodarone 200 MG TAB PO SCH (08:28)
[2019-03-06] MEDS: Enoxaparin Sodium 40 MG/0.4 ML SYRINGE SC SCH (08:29)
[2019-03-06] MEDS: Acetaminophen/Codeine 30-300mg Tablet PO PRN ×2 (08:38→16:19)
[2019-03-06] MEDS: traMADol HCl 50 MG TAB PO PRN ×2 (09:17→14:06)
--- NOTE | 2019-03-06 11:43 | OP ---
DATE OF PROCEDURE: 03/05/2019 PREOPERATIVE DIAGNOSES: Decubitus ulcer; immobility; [facility] resident; open wound, right foot with exposed metatarsal phalanx, right fifth toe; mild contracture, right knee. POSTOPERATIVE DIAGNOSES: Decubitus ulcer; immobility; [facility] resident; open wound, right foot with exposed metatarsal phalanx, right fifth toe; mild contracture, right knee. PROCEDURES PERFORMED: Resection, ray amputation, right fifth toe and metatarsal, wound dressing applied secondary intention for VAC application tomorrow. ANESTHESIA: Sedation. Note, the patient's power of collections attorney is his cousin, who lives in [place]. The patient is a [facility] resident. DESCRIPTION OF PROCEDURE: The patient was taken to the operating room, where under intravenous sedation, right foot and leg prepared with Betadine and draped in routine fashion. Incision made for ray amputation, encompassing en bloc resection of the right fifth toe and metatarsal and open wound, right lateral foot. Incision was carried down to skin and subcutaneous tissue, preserving skin as possible. Metatarsal was transected with a bone cutter, resecting approximately with a rongeur. Connective tissue debrided sharply. There was good bleeding, controlled with cautery. Wound irrigated. Good hemostasis noted, connective tissue, muscle, fascia resected. Gauze dressing applied. Wound VAC to be applied tomorrow. Job ID: [id number]
[2019-03-06] MEDS: Morphine 2 MG/ML SYRINGE SLOW IVP PRN ×2 (12:23→20:14)
--- NOTE | 2019-03-06 14:39 | PDOC.HOSPP ---
- Subjective Encounter Date: 03/06/19 Encounter Time: 09:00 Subjective: feels better, [place] [facility] [place] [facility] - Objective Vital Signs & Weight: Vital Signs (12 hours) Temp Pulse Resp BP BP Pulse Ox 03/06/19 08:00 98.2 F 65 20 126/70 94 L 03/06/19 05:12 98.4 F 69 18 123/73 91 L Weight Admit Weight 225 lb 4.8 oz Weight 225 lb 4.8 oz I&O: 03/05/19 03/06/19 03/07/19 06:59 06:59 06:59 Intake Total 2160 2215 Output Total 300 Balance 1860 2215 Result Diagrams: 03/06/19 06:08 03/06/19 06:08 Hospitalist ROS - Medication Medications: Active Medications Generic Name Dose Route Start Last Admin Trade Name Freq PRN Reason Stop Dose Admin Acetaminophen/Codeine Phosphate 1 tab 03/03/19 22:47 03/06/19 08:38 Tylenol #3 PO 1 tab Q6HR PRN Administration Moderate to Severe Pain (6-10) Amiodarone HCl 100 mg 03/04/19 09:00 03/06/19 08:28 Cordarone PO 100 mg QAM JOSE Administration Aspirin 81 mg 03/04/19 09:00 03/06/19 08:28 Aspirin Chewable PO 81 mg DAILY JOSE Administration Atorvastatin Calcium 10 mg 03/04/19 21:00 03/05/19 20:33 Lipitor PO 10 mg HS JOSE Administration Enoxaparin Sodium 40 mg 03/04/19 09:00 03/06/19 08:29 Lovenox SC Not Given [address] [facility] Escitalopram Oxalate 5 mg 03/04/19 09:00 03/06/19 08:26 Lexapro PO 5 mg DAILY JOSE Administration Famotidine 20 mg 03/03/19 21:00 03/06/19 08:25 Pepcid PO 20 mg BID JOSE Administration Hydrochlorothiazide 25 mg 03/04/19 09:00 03/06/19 08:26 Hydrochlorothiazide PO 25 mg DAILY JOSE Administration Vancomycin HCl 2 gm/ Sodium 500 mls @ 250 mls/hr 03/05/19 20:00 03/05/19 20: 33 Chloride IVPB 500 mls 2000 JOSE Administration Cefepime HCl 2 gm/ Sodium 100 mls @ 200 mls/hr 03/06/19 05:00 03/06/19 04:32 Chloride IVPB 100 mls 0500,1700 JOSE Administration Metronidazole 500 mg 03/04/19 21:00 03/06/19 14:06 Flagyl PO 500 mg TID JOSE Administration Morphine Sulfate 2 mg 03/06/19 09:46 03/06/19 12:23 Morphine SLOW IVP 2 mg Q6H PRN Administration Pain Sodium Chloride 10 ml 03/03/19 16:10 03/03/19 19:46 Flush - Normal Saline IVF 10 ml PRN PRN Administration Saline Flush Tamsulosin HCl 0.4 mg 03/04/19 21:00 03/05/19 20:33 Flomax PO 0.4 mg HS JOSE Administration Tramadol HCl 50 mg 03/04/19 21:13 03/06/19 14:06 Ultram PO 50 mg Q4H PRN Administration Mild-Moderate Pain (1-5) Valsartan 160 mg 03/04/19 09:00 03/06/19 08:28 Diovan PO 160 mg DAILY JOSE Administration - Exam General Appearance: awake alert Eye: PERRL, anicteric sclera ENT: no oropharyngeal lesions, moist mucosa Neck: supple, no JVD Heart: RRR, no murmur Respiratory: no wheezes, no rales Gastrointestinal: soft, non-tender, non-distended, normal bowel sounds Extremities: no cyanosis, 1+ LE edema Extremities - other findings: right foot in dressing Neurological: cranial nerve grossly intact, no focal deficits Hosp A/P (1) Wound of right foot Code(s): S91.301A - UNSPECIFIED OPEN WOUND, RIGHT FOOT, INITIAL ENCOUNTER Status: Acute (2) Afib Code(s): I48.91 - UNSPECIFIED ATRIAL FIBRILLATION Status: Chronic Qualifiers: Atrial fibrillation type: paroxysmal Qualified Code(s): I48.0 - Paroxysmal atrial fibrillation (3) BPH (benign prostatic hyperplasia) Code(s): N40.0 - BENIGN PROSTATIC HYPERPLASIA WITHOUT LOWER URINRY TRACT SYMP Status: Chronic Qualifiers: Lower urinary tract symptom presence: unspecified whether lower urinary tract symptoms present Qualified Code(s): N40.0 - Benign prostatic hyperplasia without lower urinary tract symptoms (4) Dementia Code(s): F03.90 - UNSPECIFIED DEMENTIA WITHOUT BEHAVIORAL DISTURBANCE Status: Chronic Qualifiers: Dementia type: Alzheimer's disease (5) Anemia Code(s): D64.9 - ANEMIA, UNSPECIFIED Status: Chronic (6) Anxiety Code(s): F41.9 - ANXIETY DISORDER, UNSPECIFIED Status: Chronic (7) Dyslipidemia Code(s): E78.5 - HYPERLIPIDEMIA, UNSPECIFIED Status: Chronic (8) HTN (hypertension) Code(s): I10 - ESSENTIAL (PRIMARY) HYPERTENSION Status: Chronic Qualifiers: Hypertension type: essential hypertension Qualified Code(s): I10 - Essential (primary) hypertension - Plan had amputation of right 5th toe and metatarsal, will need wound vac and outpt wound care appt to be set up on cefepime and vanc along with flagyl, outpt antibiotics per ID adv continue asp, lipitor, amiodarone, lexapro, hctz, valsartan and flomax PT to mobilize as tolerated, needed max assist to stand day before dc plan when above is arranged and choice of antibiotics for outpt use is done.
--- NOTE | 2019-03-06 16:36 | EKG ---
Test Reason : PRE-OP Blood Pressure : / mmHG Vent. Rate : 052 BPM Atrial Rate : 052 BPM P-R Int : 248 ms QRS Dur : 062 ms QT Int : 456 ms P-R-T Axes : 000 037 046 degrees QTc Int : 424 ms Sinus bradycardia with 1st degree A-V block Nonspecific ST and T wave abnormality Abnormal ECG When compared with ECG of 03-JAN-2018 13:49, Questionable change in QRS duration Confirmed by DR. Naomie BE ([id number]) on 03/06/2019 4:36:31 PM Referred By: HENRRY Confirmed By:DR. Naomie BE
[2019-03-06] MEDS: Atorvastatin Calcium 10 MG TAB PO SCH (20:10)
[2019-03-06] MEDS: Tamsulosin HCl 0.4 MG CAP PO SCH (20:10)
[2019-03-06 23:55] VITALS: TEMP 98
[2019-03-07] MEDS: Morphine 2 MG/ML SYRINGE SLOW IVP PRN ×2 (04:11→14:01)
[2019-03-07] MEDS: Cefepime 2 GM in Sodium Chloride 0.9% 100 ML IVPB SCH ×2 (04:12→17:00)
[2019-03-07] MEDS: Acetaminophen 500 MG TAB PO PRN ×3 (05:17→17:00)
[2019-03-07] MEDS: traMADol HCl 50 MG TAB PO PRN ×3 (05:17→17:00)
[2019-03-07 07:16] VITALS: BP 117/66
[2019-03-07] MEDS: Valsartan 80 MG TAB PO SCH (07:55)
[2019-03-07] MEDS: metroNIDAZOLE 500 MG TAB PO SCH ×2 (07:56→14:55)
[2019-03-07] MEDS: Amiodarone 200 MG TAB PO SCH (07:56)
[2019-03-07] MEDS: Escitalopram Oxalate 10 mg Tablet PO SCH (07:56)
[2019-03-07] MEDS: Hydrochlorothiazide 25 MG TAB PO SCH (07:56)
[2019-03-07] MEDS: Aspirin Chewable 81 MG TAB PO SCH (07:56)
[2019-03-07] MEDS: Acetaminophen/Codeine 30-300mg Tablet PO PRN ×2 (07:57→14:58)
[2019-03-07] MEDS: Enoxaparin Sodium 40 MG/0.4 ML SYRINGE SC SCH (07:59)
[2019-03-07] MEDS: Famotidine 20 MG TAB PO SCH (08:00)
--- NOTE | 2019-03-07 17:45 | PDOC.HOSPP ---
- Subjective Encounter Date: 03/07/19 Encounter Time: 07:45 Subjective: no sob or pain now in his foot wants to go back to snf today - Objective Vital Signs & Weight: Vital Signs (12 hours) Temp Pulse Resp BP Pulse Ox 03/07/19 08:00 94 L 03/07/19 07:15 98.0 F 72 20 117/66 94 L Weight Admit Weight 225 lb 4.8 oz Weight 225 lb 4.8 oz I&O: 03/06/19 03/07/19 03/08/19 06:59 06:59 06:59 Intake Total 2215 900 Balance 2215 900 Result Diagrams: 03/06/19 06:08 03/06/19 06:08 Hospitalist ROS - Medication Medications: Active Medications Generic Name Dose Route Start Last Admin Trade Name Freq PRN Reason Stop Dose Admin Acetaminophen 1,000 mg 03/04/19 16:57 03/07/19 17:00 Tylenol PO 1,000 mg Q6H PRN Administration Moderate to Severe Pain (6-10) Acetaminophen/Codeine Phosphate 1 tab 03/03/19 22:47 03/07/19 14:58 Tylenol #3 PO 1 tab Q6HR PRN Administration Moderate to Severe Pain (6-10) Amiodarone HCl 100 mg 03/04/19 09:00 03/07/19 07:56 Cordarone PO 100 mg QAM JOSE Administration Aspirin 81 mg 03/04/19 09:00 03/07/19 07:56 Aspirin Chewable PO 81 mg DAILY JOSE Administration Atorvastatin Calcium 10 mg 03/04/19 21:00 03/06/19 20:10 Lipitor PO 10 mg HS JOSE Administration Enoxaparin Sodium 40 mg 03/04/19 09:00 03/07/19 07:59 Lovenox SC Not Given 0900 JOSE Escitalopram Oxalate 5 mg 03/04/19 09:00 03/07/19 07:56 Lexapro PO 5 mg DAILY JOSE Administration Famotidine 20 mg 03/03/19 21:00 03/07/19 08:00 Pepcid PO 20 mg BID JOSE Administration Hydrochlorothiazide 25 mg 03/04/19 09:00 03/07/19 07:56 Hydrochlorothiazide PO 25 mg DAILY JOSE Administration Vancomycin HCl 2 gm/ Sodium 500 mls @ 250 mls/hr 03/05/19 20:00 03/06/19 20: 10 Chloride IVPB 500 mls 2000 JOSE Administration Cefepime HCl 2 gm/ Sodium 100 mls @ 200 mls/hr 03/06/19 05:00 03/07/19 17:00 Chloride IVPB 100 mls 0500,1700 JOSE Administration Metronidazole 500 mg 03/04/19 21:00 03/07/19 14:55 Flagyl PO 500 mg TID JOSE Administration Sodium Chloride 10 ml 03/03/19 16:10 03/03/19 19:46 Flush - Normal Saline IVF 10 ml PRN PRN Administration Saline Flush Tamsulosin HCl 0.4 mg 03/04/19 21:00 03/06/19 20:10 Flomax PO 0.4 mg HS JOSE Administration Tramadol HCl 50 mg 03/04/19 21:13 03/07/19 17:00 Ultram PO 50 mg Q4H PRN Administration Mild-Moderate Pain (1-5) Valsartan 160 mg 03/04/19 09:00 03/07/19 07:55 Diovan PO 160 mg DAILY JOSE Administration - Exam General Appearance: awake alert Eye: PERRL, anicteric sclera ENT: no oropharyngeal lesions, moist mucosa Neck: supple, no JVD Heart: RRR, no murmur Respiratory: no wheezes, no rales Gastrointestinal: soft, non-tender, non-distended, normal bowel sounds Extremities - other findings: right foot in wound vac Neurological: cranial nerve grossly intact, no focal deficits Hosp A/P (1) Wound of right foot Code(s): S91.301A - UNSPECIFIED OPEN WOUND, RIGHT FOOT, INITIAL ENCOUNTER Status: Acute (2) Afib Code(s): I48.91 - UNSPECIFIED ATRIAL FIBRILLATION Status: Chronic Qualifiers: Atrial fibrillation type: paroxysmal Qualified Code(s): I48.0 - Paroxysmal atrial fibrillation (3) BPH (benign prostatic hyperplasia) Code(s): N40.0 - BENIGN PROSTATIC HYPERPLASIA WITHOUT LOWER URINRY TRACT SYMP Status: Chronic Qualifiers: Lower urinary tract symptom presence: unspecified whether lower urinary tract symptoms present Qualified Code(s): N40.0 - Benign prostatic hyperplasia without lower urinary tract symptoms (4) Dementia Code(s): F03.90 - UNSPECIFIED DEMENTIA WITHOUT BEHAVIORAL DISTURBANCE Status: Chronic Qualifiers: Dementia type: Alzheimer's disease (5) Anemia Code(s): D64.9 - ANEMIA, UNSPECIFIED Status: Chronic (6) Anxiety Code(s): F41.9 - ANXIETY DISORDER, UNSPECIFIED Status: Chronic (7) Dyslipidemia Code(s): E78.5 - HYPERLIPIDEMIA, UNSPECIFIED Status: Chronic (8) HTN (hypertension) Code(s): I10 - ESSENTIAL (PRIMARY) HYPERTENSION Status: Chronic Qualifiers: Hypertension type: essential hypertension Qualified Code(s): I10 - Essential (primary) hypertension - Plan had amputation of right 5th toe and metatarsal, wound vac and outpt wound care appt is set up d/w , augmentin x 4 weeks d/w , will see him in his office to see if he can stent and revascularize his LE. continue asp, lipitor, amiodarone, lexapro, hctz, valsartan and flomax PT to mobilize as tolerated d/w cousin, gave full updates, dc plan to snf today
--- NOTE | 2019-03-07 19:00 | DIS ---
DATE OF ADMISSION: 03/03/2019 DATE OF DISCHARGE: 03/07/[address]POS[address]: [facility] 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 SECONDARY DISCHARGE DIAGNOSES: Hypertension, chronic anemia, dementia, dyslipidemia, benign prostatic hypertrophy. PROCEDURES DONE DURING HOSPITALIZATION: The patient has had a foot x-ray on the right showed findings suspicious for osteomyelitis around the fifth metatarsal phalangeal joint. He had a ray amputation of right 5th toe and metatarsal done by Dr. Garg on 03/05/2019. Right lower extremity arterial Doppler done showed diffuse abnormal waveforms suggestive of diffuse atherosclerotic disease. No focal increase in velocity was seen to suggest an area of focal stenosis. Histopathology specimen of the amputated toe showed skin and soft tissue margins being viable at the edges with the findings of acute osteomyelitis. Wound cultures grew Proteus mirabilis and Enterococcus faecalis, both sensitive to amoxicillin. Blood cultures x2, no growth. H and H of 11 and 34, platelet count 334, white count of 8. BUN 11, creatinine 0.7. CRP 1.79. Sedimentation rate 29. DISCHARGE MEDICATION: 1. Tylenol No. 3 one tablet p.o. q.6 hourly p.r.n. 2. Amiodarone 100 mg p.o. q.a.m. 3. Atorvastatin 10 mg p.o. at bedtime. 4. Colace 100 mg p.o. twice daily p.r.n. 5. Escitalopram 5 mg p.o. daily. 6. DuoNeb q.6 hourly p.r.n. 7. Melatonin 3 mg p.o. nightly p.r.n. 8. Multivitamin one tablet once daily. 9. Flomax 0.4 mg p.o. at bedtime. 10. Valsartan with hydrochlorothiazide 160/25 mg one tablet daily. 11. Augmentin 875 mg p.o. twice daily for 4 weeks. 12. Aspirin 81 mg p.o. daily. 13. 5% transdermal lidocaine patch daily for a total of 6. ALLERGIES: HYDROCODONE. INPATIENT CONSULT: Dr. Faye for Infectious Disease. Dr. Garg for General Surgery. DISCHARGE PLAN: The patient to follow up with Dr. Garg as advised. He will also follow up with outpatient Wound Care. BRIEF COURSE DURING HOSPITALIZATION: The patient initially was sent over from [facility] as his chronic wound in his right foot was looking bad. He also had purulent discharge. Initial x-rays done revealed osteomyelitis. He has had consultation with Dr. Garg. The patient has had ray amputation of the right 5th toe and metatarsal done and the wound was placed in wound VAC by Dr. Garg. Wound cultures grew Proteus mirabilis and Enterococcus faecalis, both sensitive to ampicillin. The patient was on IV antibiotics and has been transitioned to oral Augmentin for a total of 4 weeks. The patient has peripheral vascular disease based on the arterial Doppler. If the wound does not heal or gets worse, the patient might likely end up with below-knee amputation. He is otherwise hemodynamically stable and has been cleared by all consults. I have spoken to the patient's cousin, Mr. Cammie Kinney, and VICKIE, and I have given complete updates. A total of 35 minutes was spent on discharge plan. Please see a [id number] documentation for the day of discharge on [facility]. Job ID: [id number] [facility]
[2019-03-08] MEDS ORDERED: Lidocaine 5% Patch TD SCH (09:00)
[2019-03-08] MEDS ORDERED: Lidocaine Patch Removal 1 EACH TOP SCH (21:00)
== END 2019-03-07 18:39 | DRG 475 ==
LOC: ERS 11:56 → T4-B 18:56
PROVIDERS: ADMIT Internal Medicine; ATTEND Internal Medicine
PROC: 0Y6M0ZF Detachment at Right Foot, Partial 5th Ray, Open Approach (ICD-10-PCS; principal; 2019-03-05)
DX: M86.8X7 Other osteomyelitis, ankle and foot (principal); I70.268 Atherosclerosis of native arteries of extremities with gangrene, other extremity; I25.10 Atherosclerotic heart disease of native coronary artery without angina pectoris; N40.0 Benign prostatic hyperplasia without lower urinary tract symptoms; F03.90 Unspecified dementia, unspecified severity, without behavioral disturbance, psychotic disturbance, mood disturbance, and anxiety; E78.5 Hyperlipidemia, unspecified; I48.91 Unspecified atrial fibrillation; K21.9 Gastro-esophageal reflux disease without esophagitis; J44.9 Chronic obstructive pulmonary disease, unspecified; G89.29 Other chronic pain; M54.5 Low back pain; F41.9 Anxiety disorder, unspecified; L98.499 Non-pressure chronic ulcer of skin of other sites with unspecified severity; Z96.653 Presence of artificial knee joint, bilateral; Z96.649 Presence of unspecified artificial hip joint; D64.9 Anemia, unspecified; B96.4 Proteus (mirabilis) (morganii) as the cause of diseases classified elsewhere; B95.2 Enterococcus as the cause of diseases classified elsewhere; Z87.891 Personal history of nicotine dependence; Z79.899 Other long term (current) drug therapy; Z79.82 Long term (current) use of aspirin
CPT/HCPCS: 36415; 80048; 80053; 80202; 81001; 85025; 85652; 86140; 87040; 87070; 87077; 87186; 87205; 88305; 88311; 93005; 93010; 93923; 96365; 96375; J0692; J1650; J2270; J2405; J2704; J3010; J3370; J3490; J7050

== ENCOUNTER 2019-04-11 15:25 | Outpatient (CLI) | payer MEDICARE, BC ==
--- NOTE | 2019-04-11 16:38 | RAD ---
LEFT SHOULDER THREE VIEWS: 04/11/19 HISTORY: Shoulder pain. Subacromial spur is present. On the internally rotated view, the humeral head appears slightly high r iding. The possibility of underlying rotator cuff injury should be considered. The bones are deminera lized. IMPRESSION: Arthritic changes of the shoulder with some mild arthritic changes of the AC and glenohumeral joint. Prominent subacromial spur and findings that suggest possibility of a rotator cuff tear. POS: JOSE LUIS
== END 2019-04-11 15:26 | disposition home or self-care (01) ==
LOC: RAD 15:25
PROVIDERS: ATTEND Family Medicine
DX: M25.512 Pain in left shoulder (principal); M19.012 Primary osteoarthritis, left shoulder

== ENCOUNTER 2020-12-15 12:13 | Emergency (ER) | payer MEDICARE ==
[2020-12-15 12:57] LABS: #Basophils 0.1 thou/uL (0.0-0.2); #Eosinphils 0.3 thou/uL (0.0-0.7); #Lymphocytes 1.2 thou/uL (1.20-3.40); #Monocytes 0.7 thou/uL (0.11-0.59); #Neutrophils 9.1 thou/uL (1.40-6.50); %Basophils 0.7 % (0.0-1.0); %Eosinophils 2.3 % (0.0-10.0); %Lymphocytes 10.3 % (21.0-51.0); %Monocytes 6.2 % (0.0-10.0); %Neutrophils 80.6 % (42.0-75.0); Hemoglobin 14.6 g/dL (14.0-18.0); Mean Corpuscular HGB CONC 32.2 g/dL (32.0-36.0); Mean Corpuscular Hemoglobin 34.6 pg (27.0-31.0); Mean Platelet Volume 6.1 fL (7.4-10.4); Platelet Count 298 thou/uL (130-400); Red Blood Cell (RBC) Count 4.21 mill/uL (4.70-6.10); White Blood Cell (WBC) Count 11.3 thou/uL (4.8-10.8)
[2020-12-15 13:10] LABS: ALT (SGPT) 12 U/L (8-55); AST (SGOT) 18 U/L (5-34); Albumin 3.6 g/dL (3.4-4.8); Alkaline Phosphatase 65 U/L (40-110); Anion Gap 14 mmol/L (10-20); BUN (Urea Nitrogen) 24 mg/dL (8.4-25.7); Bilirubin, Total 0.9 mg/dL (0.2-1.2); Calc. Creatinine Clearance 0 mL/min (70-130); Calcium 9.1 mg/dL (7.8-10.44); Carbon Dioxide 24 mmol/L (23-31); Chloride 103 mmol/L (98-107); Globulin 2.5 g/dL (2.4-3.5); Glucose 106 mg/dL (83-110); Potassium 4.2 mmol/L (3.5-5.1); Protein, Total 6.1 g/dL (5.8-8.1); Sodium 137 mmol/L (136-145)
[2020-12-15 13:17] LABS: MDiff Complete? YES
[2020-12-15 13:18] LABS: Macrocytosis SLIGHT = 6-15 cells (100X) (0-5/hpf); Platelet Morphology Comment Appears Adequate; Polychromasia SLIGHT = 2-3 cells (100X) (0-2/hpf)
== END 2020-12-15 15:25 ==
LOC: ERS 12:13
DX: S80.12XA Contusion of left lower leg, initial encounter (principal); I10 Essential (primary) hypertension; J44.9 Chronic obstructive pulmonary disease, unspecified; E78.5 Hyperlipidemia, unspecified; K21.9 Gastro-esophageal reflux disease without esophagitis; Z79.899 Other long term (current) drug therapy; W19.XXXA Unspecified fall, initial encounter
CPT/HCPCS: 36415; 80053; 85025

== ENCOUNTER 2021-04-27 14:21 | Inpatient (IN) | payer MEDICARE ==
[~2021-04-27 14:21] MED LIST: Iopamidol 370 76% 100 ML VIAL ONE
[2021-04-27 14:56] LABS: #Basophils 0.1 thou/uL (0.0-0.2); #Eosinphils 0.6 thou/uL (0.0-0.7); #Lymphocytes 1.3 thou/uL (1.20-3.40); #Monocytes 0.9 thou/uL (0.11-0.59); #Neutrophils 5.7 thou/uL (1.40-6.50); %Basophils 1.4 % (0.0-1.0); %Eosinophils 6.9 % (0.0-10.0); %Lymphocytes 14.6 % (21.0-51.0); %Monocytes 10.5 % (0.0-10.0); %Neutrophils 66.7 % (42.0-75.0); Hemoglobin 14.8 g/dL (14.0-18.0); Mean Corpuscular HGB CONC 33.2 g/dL (32.0-36.0); Mean Corpuscular Hemoglobin 37.1 pg (27.0-31.0); Platelet Count 254 thou/uL (130-400); RBC Distribution Width 12.1 % (11.5-14.5); Red Blood Cell (RBC) Count 3.99 mill/uL (4.70-6.10); White Blood Cell (WBC) Count 8.6 thou/uL (4.8-10.8)
[2021-04-27 15:08] LABS: INR-International Normal Ratio 1.1; PTT 29.6 sec (22.9-36.1); Prothrombin Time 14.3 sec (12.0-14.7)
[2021-04-27 15:14] LABS: MDiff Complete? YES; Macrocytosis SLIGHT = 6-15 cells (100X) (0-5/hpf); Platelet Morphology Comment Appears Adequate
[2021-04-27 15:24] LABS: ALT (SGPT) 13 U/L (8-55); AST (SGOT) 19 U/L (5-34); Albumin 3.8 g/dL (3.4-4.8); Alkaline Phosphatase 69 U/L (40-110); Anion Gap 11 mmol/L (10-20); BUN (Urea Nitrogen) 21 mg/dL (8.4-25.7); Bilirubin, Total 0.7 mg/dL (0.2-1.2); Calc. Creatinine Clearance 0 mL/min (70-130); Calcium 9.2 mg/dL (7.8-10.44); Carbon Dioxide 25 mmol/L (23-31); Chloride 107 mmol/L (98-107); Globulin 2.4 g/dL (2.4-3.5); Glucose 112 mg/dL (83-110); Potassium 4.3 mmol/L (3.5-5.1); Protein, Total 6.2 g/dL (5.8-8.1); Sodium 139 mmol/L (136-145)
[2021-04-27 16:24] LABS: Bilirubin Unable to Interpret (Negative); Blood, Urine Unable to Interpret (Negative); Clarity Cloudy (Clear); Glucose, Urine (Dipstick) Unable to Interpret mg/dL (Negative); Ketone, Urine Unable to Interpret mg/dL (Negative); Leukocyte Unable to Interpret (Negative); Nitrite Unable to Interpret (Negative); Protein, Urine (Dipstick) Unable to Interpret mg/dL (Neg-Trace); Specific Gravity, Urine 1.022 (1.002-1.036); Urobilinogen UNABLE TO INTERPRET mg/dL (Less than 2)
[2021-04-27 16:25] LABS: Bacteria/HPF 2+ HPF (None Seen); RBC/HPF Greater than 50 HPF (0-3); Squamous Epithelial None Seen HPF (0-3)
[2021-04-27] MEDS ORDERED: Ondansetron ODT 4 MG TAB PO PRN (21:40)
[2021-04-27] MEDS ORDERED: Non-Formulary Item 1 EACH (Acetaminophen [Tylenol] 325 MG Capsule) PO PRN (21:43)
[2021-04-27] MEDS ORDERED: hydrALAZINE 20 MG/ML VIAL SLOW IVP PRN (21:43)
[2021-04-27] MEDS ORDERED: Docusate 100 MG CAP PO PRN (21:43)
[2021-04-27] MEDS ORDERED: Electrolyte Replacement Protocol 1 EACH FS SCH (21:45)
[2021-04-27] MEDS: Sodium Chloride 0.9% 1,000 ML IV SCH (22:51)
[2021-04-27 23:45] LABS: Hemoglobin 14.1 g/dL (14.0-18.0); Platelet Count 257 thou/uL (130-400)
[2021-04-28 05:17] VITALS: BMI 29.2
[2021-04-28 05:19] LABS: #Basophils 0.1 thou/uL (0.0-0.2); #Eosinphils 0.7 thou/uL (0.0-0.7); #Lymphocytes 1.3 thou/uL (1.20-3.40); #Monocytes 1.1 thou/uL (0.11-0.59); #Neutrophils 6.5 thou/uL (1.40-6.50); %Basophils 0.9 % (0.0-1.0); %Lymphocytes 13.1 % (21.0-51.0); %Monocytes 11.5 % (0.0-10.0); %Neutrophils 67.6 % (42.0-75.0); Mean Corpuscular HGB CONC 33.4 g/dL (32.0-36.0); Mean Corpuscular Hemoglobin 36.9 pg (27.0-31.0); Mean Platelet Volume 5.9 fL (7.4-10.4); Platelet Count 251 thou/uL (130-400); RBC Distribution Width 11.9 % (11.5-14.5); Red Blood Cell (RBC) Count 3.79 mill/uL (4.70-6.10); White Blood Cell (WBC) Count 9.7 thou/uL (4.8-10.8)
[2021-04-28 05:46] LABS: Anion Gap 9 mmol/L (10-20); BUN (Urea Nitrogen) 14 mg/dL (8.4-25.7); Calc. Creatinine Clearance 110 mL/min (70-130); Calcium 8.7 mg/dL (7.8-10.44); Carbon Dioxide 27 mmol/L (23-31); Chloride 106 mmol/L (98-107); Glucose 86 mg/dL (83-110); Sodium 138 mmol/L (136-145)
[2021-04-28] MEDS ORDERED: Magnesium 2 GM/50 ML(in water) 2 GM in Premix Bag 1 BAG IVPB SCH (06:15)
[2021-04-28] MEDS: Amiodarone 200 MG TAB PO SCH (08:57)
[2021-04-28] MEDS: Valsartan 80 MG TAB PO SCH (08:57)
[2021-04-28] MEDS: Sodium Chloride 0.9% 1,000 ML IV SCH ×3 (08:57→22:40)
[2021-04-28] MEDS ORDERED: FLU VACC QS2021-22(65YR UP)/PF 240 MCG/0.7 ML SYRINGE IM ONE (09:00)
[2021-04-28] MEDS ORDERED: Lorazepam 2 MG/ML VIAL ONE (14:31)
[2021-04-28] MEDS ORDERED: Lorazepam 2 MG/ML VIAL SLOW IVP SCH (15:00)
[2021-04-28] MEDS ORDERED: cefTRIAXone\\ROCEPHIN 2 GM in Sodium Chloride 0.9% 100 ML IVPB SCH (19:00)
[2021-04-28] MEDS: Atorvastatin Calcium 10 MG TAB PO SCH (20:05)
[2021-04-28] MEDS: Tamsulosin HCl 0.4 MG CAP PO SCH (20:05)
[2021-04-28] MEDS: Lorazepam 2 MG/ML VIAL SLOW IVP PRN (22:42)
[2021-04-29] MEDS: Lorazepam 2 MG/ML VIAL SLOW IVP PRN ×2 (03:01→22:09)
[2021-04-29 05:55] LABS: #Basophils 0.1 thou/uL (0.0-0.2); #Eosinphils 0.1 thou/uL (0.0-0.7); #Lymphocytes 1.1 thou/uL (1.20-3.40); #Monocytes 1.1 thou/uL (0.11-0.59); #Neutrophils 8.3 thou/uL (1.40-6.50); %Basophils 0.7 % (0.0-1.0); %Eosinophils 1.4 % (0.0-10.0); %Lymphocytes 9.9 % (21.0-51.0); %Monocytes 10.1 % (0.0-10.0); %Neutrophils 77.9 % (42.0-75.0); Hemoglobin 15.2 g/dL (14.0-18.0); Mean Corpuscular HGB CONC 33.2 g/dL (32.0-36.0); Mean Corpuscular Hemoglobin 37.1 pg (27.0-31.0); Mean Platelet Volume 6.1 fL (7.4-10.4); Platelet Count 246 thou/uL (130-400); White Blood Cell (WBC) Count 10.6 thou/uL (4.8-10.8)
[2021-04-29 06:16] LABS: Anion Gap 10 mmol/L (10-20); BUN (Urea Nitrogen) 11 mg/dL (8.4-25.7); Calc. Creatinine Clearance 111 mL/min (70-130); Calcium 8.8 mg/dL (7.8-10.44); Carbon Dioxide 27 mmol/L (23-31); Chloride 106 mmol/L (98-107); Glucose 93 mg/dL (83-110); Potassium 3.9 mmol/L (3.5-5.1); Sodium 139 mmol/L (136-145)
[2021-04-29 08:14] LABS: % Free PSA 21.8 % (.); Total PSA 1.1 ng/mL (0.0-4.0)
[2021-04-29] MEDS: Valsartan 80 MG TAB PO SCH (08:58)
[2021-04-29] MEDS: Amiodarone 200 MG TAB PO SCH (08:58)
[2021-04-29] MEDS: Sodium Chloride 0.9% 1,000 ML IV SCH ×2 (08:59→17:26)
[2021-04-29] MEDS: Acetaminophen 325 MG TAB PO PRN (15:56)
[2021-04-29] MEDS: cefTRIAXone\\ROCEPHIN 2 GM in Sodium Chloride 0.9% 100 ML IVPB SCH (17:08)
[2021-04-29] MEDS: Atorvastatin Calcium 10 MG TAB PO SCH (20:55)
[2021-04-29] MEDS: Tamsulosin HCl 0.4 MG CAP PO SCH (20:55)
[2021-04-30] MEDS: Sodium Chloride 0.9% 1,000 ML IV SCH (07:35)
[2021-04-30] MEDS: Amiodarone 200 MG TAB PO SCH (09:13)
[2021-04-30] MEDS: Valsartan 80 MG TAB PO SCH (09:13)
[2021-04-30] MEDS ORDERED: Amiodarone 200 MG TAB PO SCH ×2 (10:00)
[2021-04-30] MEDS: Acetaminophen 325 MG TAB PO PRN ×3 (11:47→21:59)
[2021-04-30] MEDS: Potassium Chloride 10 MEQ TAB PO SCH (17:36)
[2021-04-30] MEDS: cefTRIAXone\\ROCEPHIN 2 GM in Sodium Chloride 0.9% 100 ML IVPB SCH (17:36)
[2021-04-30] MEDS: Tamsulosin HCl 0.4 MG CAP PO SCH (19:52)
[2021-04-30] MEDS: Docusate 100 MG CAP PO SCH (19:52)
[2021-04-30] MEDS: Atorvastatin Calcium 10 MG TAB PO SCH (19:52)
[2021-04-30] MEDS: Acetaminophen/Codeine 30-300mg Tablet PO PRN (19:55)
[2021-04-30] MEDS ORDERED: diphenhydrAMINE 25 MG CAP PO SCH (22:00)
[2021-05-01] MEDS ORDERED: traMADol HCl 50 MG TAB PO SCH (01:30)
[2021-05-01] MEDS: Potassium Chloride 10 MEQ TAB PO SCH ×2 (08:58→16:19)
[2021-05-01] MEDS ORDERED: Valsartan 80 MG TAB PO SCH (09:00)
[2021-05-01] MEDS: Acetaminophen 325 MG TAB PO PRN ×2 (09:01→16:18)
[2021-05-01] MEDS: Amiodarone 200 MG TAB PO SCH (09:03)
[2021-05-01] MEDS: Docusate 100 MG CAP PO SCH ×2 (09:07→20:01)
[2021-05-01] MEDS: Acetaminophen/Codeine 30-300mg Tablet PO PRN ×2 (11:42→20:01)
[2021-05-01] MEDS ORDERED: Sodium Chloride 0.9% 500 ML IV SCH (15:45)
[2021-05-01] MEDS ORDERED: Sodium Chloride 0.9% 1,000 ML IV SCH (16:15)
[2021-05-01] MEDS: cefTRIAXone\\ROCEPHIN 2 GM in Sodium Chloride 0.9% 100 ML IVPB SCH (17:20)
[2021-05-01] MEDS: Atorvastatin Calcium 10 MG TAB PO SCH (20:01)
[2021-05-01] MEDS: Tamsulosin HCl 0.4 MG CAP PO SCH (20:01)
[2021-05-01] MEDS ORDERED: diphenhydrAMINE 25 MG CAP PO SCH (22:30)
[2021-05-02 06:04] LABS: Anion Gap 10 mmol/L (10-20); BUN (Urea Nitrogen) 13 mg/dL (8.4-25.7); Calc. Creatinine Clearance 113 mL/min (70-130); Calcium 8.2 mg/dL (7.8-10.44); Carbon Dioxide 23 mmol/L (23-31); Chloride 108 mmol/L (98-107); Glucose 85 mg/dL (83-110); Potassium 4.1 mmol/L (3.5-5.1); Sodium 137 mmol/L (136-145)
[2021-05-02] MEDS: Acetaminophen 325 MG TAB PO PRN (06:41)
[2021-05-02] MEDS: Docusate 100 MG CAP PO SCH (08:28)
[2021-05-02] MEDS: Potassium Chloride 10 MEQ TAB PO SCH (08:28)
[2021-05-02] MEDS: Amiodarone 200 MG TAB PO SCH (08:30)
[2021-05-02 12:05] VITALS: BP 113/66; TEMP 98.4
[2021-05-02] MEDS: Acetaminophen/Codeine 30-300mg Tablet PO PRN (12:11)
== END 2021-05-02 15:24 | DRG 689 ==
LOC: ERS 14:21 → SURG B 19:44 → OBSVTOIN 04-28 19:21 → SURG A 05-01 05:52
PROVIDERS: ADMIT Internal Medicine; ATTEND Hospitalist
DX: N39.0 Urinary tract infection, site not specified (principal); J18.9 Pneumonia, unspecified organism; Z20.822 Contact with and (suspected) exposure to COVID-19; Z23 Encounter for immunization; I10 Essential (primary) hypertension; B96.4 Proteus (mirabilis) (morganii) as the cause of diseases classified elsewhere; D64.9 Anemia, unspecified; F03.90 Unspecified dementia, unspecified severity, without behavioral disturbance, psychotic disturbance, mood disturbance, and anxiety; E78.5 Hyperlipidemia, unspecified; N40.0 Benign prostatic hyperplasia without lower urinary tract symptoms; I73.9 Peripheral vascular disease, unspecified; I49.1 Atrial premature depolarization; J44.9 Chronic obstructive pulmonary disease, unspecified; K21.9 Gastro-esophageal reflux disease without esophagitis; F41.9 Anxiety disorder, unspecified; R33.9 Retention of urine, unspecified; I48.91 Unspecified atrial fibrillation; Z96.653 Presence of artificial knee joint, bilateral; G62.9 Polyneuropathy, unspecified; I95.9 Hypotension, unspecified; Z88.5 Allergy status to narcotic agent; Z79.82 Long term (current) use of aspirin; Z79.51 Long term (current) use of inhaled steroids; Z79.899 Other long term (current) drug therapy; Z89.421 Acquired absence of other right toe(s)
CPT/HCPCS: 36415; 51702; 71045; 74178; 80048; 80053; 81001; 81003; 81015; 82607; 82746; 83735; 84153; 84154; 85025; 85610; 85730; 87077; 87086; 87186; 96365; 96375; G0378; J0696; J2060; J3475; J3490; J7030; J7050; Q9967; U0003; U0005

== ENCOUNTER 2021-05-04 20:58 | Emergency (ER) | payer MEDICARE ==
[2021-05-04 22:06] LABS: #Basophils 0.1 thou/uL (0.0-0.2); #Eosinphils 0.6 thou/uL (0.0-0.7); #Lymphocytes 1.2 thou/uL (1.20-3.40); #Monocytes 1.3 thou/uL (0.11-0.59); #Neutrophils 6.8 thou/uL (1.40-6.50); %Basophils 0.9 % (0.0-1.0); %Eosinophils 5.7 % (0.0-10.0); %Lymphocytes 11.8 % (21.0-51.0); %Monocytes 12.9 % (0.0-10.0); %Neutrophils 68.7 % (42.0-75.0); Hemoglobin 13.2 g/dL (14.0-18.0); Mean Corpuscular HGB CONC 33.5 g/dL (32.0-36.0); Mean Corpuscular Hemoglobin 37.1 pg (27.0-31.0); Mean Platelet Volume 5.8 fL (7.4-10.4); Platelet Count 296 thou/uL (130-400); RBC Distribution Width 11.9 % (11.5-14.5); Red Blood Cell (RBC) Count 3.56 mill/uL (4.70-6.10); White Blood Cell (WBC) Count 9.9 thou/uL (4.8-10.8)
[2021-05-04 22:26] LABS: ALT (SGPT) 18 U/L (8-55); AST (SGOT) 28 U/L (5-34); Albumin 3.4 g/dL (3.4-4.8); Alkaline Phosphatase 64 U/L (40-110); Anion Gap 12 mmol/L (10-20); BUN (Urea Nitrogen) 20 mg/dL (8.4-25.7); Bilirubin, Total 0.7 mg/dL (0.2-1.2); Calc. Creatinine Clearance 0 mL/min (70-130); Carbon Dioxide 24 mmol/L (23-31); Chloride 106 mmol/L (98-107); Globulin 2.6 g/dL (2.4-3.5); Glucose 103 mg/dL (83-110); Potassium 3.9 mmol/L (3.5-5.1); Sodium 138 mmol/L (136-145)
[2021-05-04 22:43] LABS: Bacteria/HPF None Seen HPF (None Seen); Bilirubin Negative (Negative); Blood, Urine 2+ (Negative); Clarity Clear (Clear); Glucose, Urine (Dipstick) Normal (Negative); Ketone, Urine Negative (Negative); Leukocyte 75 Leu/uL (Negative); Nitrite Negative (Negative); Protein, Urine (Dipstick) 30 mg/dL (Neg-Trace); Specific Gravity, Urine 1.026 (1.002-1.036); Squamous Epithelial None Seen HPF (0-3); Urobilinogen Normal mg/dL (Less than 2)
== END 2021-05-04 23:00 ==
LOC: ERS 20:58
DX: T83.091A Other mechanical complication of indwelling urethral catheter, initial encounter (principal); I10 Essential (primary) hypertension; J44.9 Chronic obstructive pulmonary disease, unspecified; E78.5 Hyperlipidemia, unspecified; K21.9 Gastro-esophageal reflux disease without esophagitis; Z79.899 Other long term (current) drug therapy
CPT/HCPCS: 36415; 51701; 80053; 81003; 81015; 85025; 87086

== ENCOUNTER 2021-09-22 01:19 | Emergency (ER) | payer MEDICARE ==
[2021-09-22 02:23] LABS: #Basophils 0.1 thou/uL (0.0-0.2); #Eosinphils 0.9 thou/uL (0.0-0.7); #Monocytes 1.2 thou/uL (0.11-0.59); %Basophils 1.1 % (0.0-1.0); %Eosinophils 9.2 % (0.0-10.0); %Lymphocytes 19.1 % (21.0-51.0); %Monocytes 12.1 % (0.0-10.0); %Neutrophils 58.5 % (42.0-75.0); Mean Corpuscular HGB CONC 33.1 g/dL (32.0-36.0); Mean Corpuscular Hemoglobin 35.8 pg (27.0-31.0); Mean Platelet Volume 6.5 fL (7.4-10.4); Platelet Count 288 thou/uL (130-400); RBC Distribution Width 13.2 % (11.5-14.5); White Blood Cell (WBC) Count 10.3 thou/uL (4.8-10.8)
[2021-09-22 02:27] LABS: INR-International Normal Ratio 1.1
[2021-09-22 02:28] LABS: PTT 28.1 sec (22.9-36.1)
[2021-09-22 02:35] LABS: ALT (SGPT) 10 U/L (8-55); AST (SGOT) 19 U/L (5-34); Albumin 3.6 g/dL (3.4-4.8); Alkaline Phosphatase 77 U/L (40-110); Anion Gap 16 mmol/L (10-20); BUN (Urea Nitrogen) 20 mg/dL (8.4-25.7); Calc. Creatinine Clearance 0 mL/min (70-130); Calcium 9.5 mg/dL (7.8-10.44); Carbon Dioxide 25 mmol/L (23-31); Chloride 104 mmol/L (98-107); Estimated GFR 92; Globulin 3.6 g/dL (2.4-3.5); Glucose 100 mg/dL (83-110); Potassium 4.3 mmol/L (3.5-5.1); Protein, Total 7.2 g/dL (5.8-8.1); Sodium 141 mmol/L (136-145)
[2021-09-22] MEDS ORDERED: Silver Nitrate Application 1 EACH ONE ×2 (03:05→03:11)
[2021-09-22] MEDS ORDERED: Tranexamic Acid 1,000 MG/10 ML VIAL ONE (05:35)
[2021-09-22 07:28] LABS: #Basophils 0.1 thou/uL (0.0-0.2); #Eosinphils 0.9 thou/uL (0.0-0.7); #Lymphocytes 1.8 thou/uL (1.20-3.40); #Monocytes 1.2 thou/uL (0.11-0.59); #Neutrophils 4.6 thou/uL (1.40-6.50); %Eosinophils 10.6 % (0.0-10.0); %Lymphocytes 20.5 % (21.0-51.0); %Monocytes 14.3 % (0.0-10.0); %Neutrophils 53.6 % (42.0-75.0); Hemoglobin 12.4 g/dL (14.0-18.0); Mean Corpuscular HGB CONC 31.3 g/dL (32.0-36.0); Mean Corpuscular Hemoglobin 34.5 pg (27.0-31.0); Mean Platelet Volume 6.5 fL (7.4-10.4); Platelet Count 262 thou/uL (130-400); RBC Distribution Width 12.9 % (11.5-14.5); White Blood Cell (WBC) Count 8.6 thou/uL (4.8-10.8)
[2021-09-22 07:44] LABS: Clarity Extra Turbid (Clear); Specific Gravity, Urine 1.053 (1.002-1.036)
[2021-09-22 07:45] LABS: Bacteria/HPF 2+ HPF (None Seen); Bilirubin Unable to Interpret (Negative); Blood, Urine Unable to Interpret (Negative); Glucose, Urine (Dipstick) Unable to Interpret mg/dL (Negative); Ketone, Urine Unable to Interpret mg/dL (Negative); Leukocyte Unable to Interpret Leu/uL (Negative); Nitrite Unable to Interpret (Negative); Protein, Urine (Dipstick) Unable to Interpret mg/dL (Neg-Trace); Squamous Epithelial None Seen HPF (0-3); Urobilinogen UNABLE TO INTERPRET mg/dL (Less than 2); WBC/HPF 21-50 HPF (0-3); pH, Urine 8.9 (5.0-9.0)
[2021-09-22] MEDS ORDERED: ISOVUE-370 76%-LOCM 1 ML ONE (08:00)
[2021-09-22] MEDS ORDERED: Acetaminophen 500 MG TAB ONE ×2 (09:15→09:16)
== END 2021-09-22 10:43 ==
LOC: ERS 01:19
DX: T83.090A Other mechanical complication of cystostomy catheter, initial encounter (principal); K52.89 Other specified noninfective gastroenteritis and colitis; I10 Essential (primary) hypertension; J44.9 Chronic obstructive pulmonary disease, unspecified; I48.91 Unspecified atrial fibrillation; K21.9 Gastro-esophageal reflux disease without esophagitis; D64.9 Anemia, unspecified; E78.5 Hyperlipidemia, unspecified
CPT/HCPCS: 36415; 74177; 80053; 81003; 81015; 85025; 85610; 85730; 93005; Q9966

== ENCOUNTER 2021-10-09 10:11 | Inpatient (IN) | payer BC, MEDICARE ==
[2021-10-09 11:20] LABS: ALT (SGPT) 17 U/L (8-55); AST (SGOT) 15 U/L (5-34); Albumin 3.6 g/dL (3.4-4.8); Alkaline Phosphatase 83 U/L (40-110); Anion Gap 18 mmol/L (10-20); BUN (Urea Nitrogen) 31 mg/dL (8.4-25.7); Calc. Creatinine Clearance 0 mL/min (70-130); Calcium 9.8 mg/dL (7.8-10.44); Carbon Dioxide 21 mmol/L (23-31); Chloride 107 mmol/L (98-107); Estimated GFR 77; Globulin 3.5 g/dL (2.4-3.5); Glucose 125 mg/dL (83-110); Potassium 3.9 mmol/L (3.5-5.1); Protein, Total 7.1 g/dL (5.8-8.1); Sodium 142 mmol/L (136-145)
[2021-10-09 11:25] LABS: Band 5 % (5-11); CK (CPK) 14 U/L (30-200); Hemoglobin 12.6 g/dL (14.0-18.0); Lymphocytes 2 % (21-51); MDiff Complete? YES; Macrocytosis SLIGHT = 6-15 cells (100X) (0-5/hpf); Magnesium 1.9 mg/dL (1.6-2.6); Mean Corpuscular HGB CONC 32.2 g/dL (32.0-36.0); Mean Corpuscular Hemoglobin 34.4 pg (27.0-31.0); Mean Platelet Volume 6.3 fL (7.4-10.4); Metamyelocyte 2 % (0-0); Monocytes 2 % (0-10); Neutrophil 89 % (42-75); Platelet Count 412 thou/uL (130-400); Platelet Morphology Comment Appears Increased; RBC Distribution Width 13.3 % (11.5-14.5); Red Blood Cell (RBC) Count 3.68 mill/uL (4.70-6.10); White Blood Cell (WBC) Count 28.5 thou/uL (4.8-10.8)
[2021-10-09] MEDS ORDERED: Cefepime 2 GM VIAL ONE (12:27)
[2021-10-09] MEDS ORDERED: Vancomycin 1 GM/200 ML BAG ONE (12:27)
[2021-10-09 13:15] LABS: Bilirubin Negative (Negative); Blood, Urine Large (Negative); Glucose, Urine (Dipstick) Negative (Negative); Ketone, Urine Negative (Negative); Leukocyte Large (Negative); Nitrite Positive (Negative); Protein, Urine (Dipstick) > or equal to 300 mg/dL (Neg-Trace); Urobilinogen 0.2 mg/dL (Less than 2); pH, Urine 8.5 (5.0-9.0)
[2021-10-09 13:18] LABS: Bacteria/HPF 4+ HPF (None Seen); Clarity Cloudy (Clear); RBC/HPF Greater than 50 HPF (0-3); Squamous Epithelial 0-3 HPF (0-3)
[2021-10-09 14:18] LABS: Lactic Acid 3.7 mmol/L (0.5-2.2)
[2021-10-09 14:28] LABS: SARS-CoV-2 NAA Rapid Test Not Detected (NotDetected)
[2021-10-09 14:44] LABS: CKMB 1.2 ng/mL (0-6.6)
[2021-10-09 16:12] VITALS: BMI 29.0
[2021-10-09] MEDS: valACYclovir 500 MG TAB PO SCH ×2 (17:04→22:27)
[2021-10-09 18:02] LABS: Troponin I 0.049 ng/mL (< 0.028)
[2021-10-09 20:59] LABS: Troponin I 0.051 ng/mL (< 0.028)
[2021-10-09] MEDS: Trospium 20 MG TAB PO SCH (22:28)
[2021-10-09] MEDS: Cefepime 1 GM in Sodium Chloride 0.9% 100 ML IVPB SCH (22:28)
[2021-10-09] MEDS: Atorvastatin Calcium 10 MG TAB PO SCH (22:28)
[2021-10-10 05:12] LABS: #Basophils 0.1 thou/uL (0.0-0.2); #Eosinphils 0.1 thou/uL (0.0-0.7); #Lymphocytes 1.3 thou/uL (1.20-3.40); #Monocytes 0.7 thou/uL (0.11-0.59); #Neutrophils 15.3 thou/uL (1.40-6.50); %Basophils 0.5 % (0.0-1.0); %Eosinophils 0.8 % (0.0-10.0); %Lymphocytes 7.3 % (21.0-51.0); %Monocytes 4.1 % (0.0-10.0); %Neutrophils 87.3 % (42.0-75.0); Hemoglobin 10.3 g/dL (14.0-18.0); Mean Corpuscular HGB CONC 33.9 g/dL (32.0-36.0); Mean Corpuscular Hemoglobin 36.3 pg (27.0-31.0); Mean Platelet Volume 6.1 fL (7.4-10.4); Platelet Count 319 thou/uL (130-400); RBC Distribution Width 13.3 % (11.5-14.5); Red Blood Cell (RBC) Count 2.85 mill/uL (4.70-6.10); White Blood Cell (WBC) Count 17.5 thou/uL (4.8-10.8)
[2021-10-10 05:22] LABS: Anion Gap 10 mmol/L (10-20); BUN (Urea Nitrogen) 22 mg/dL (8.4-25.7); Calc. Creatinine Clearance 116 mL/min (70-130); Calcium 8.6 mg/dL (7.8-10.44); Carbon Dioxide 24 mmol/L (23-31); Chloride 111 mmol/L (98-107); Estimated GFR 92; Glucose 90 mg/dL (83-110); Potassium 3.5 mmol/L (3.5-5.1); Sodium 141 mmol/L (136-145)
[2021-10-10] MEDS: Cefepime 1 GM in Sodium Chloride 0.9% 100 ML IVPB SCH (11:15)
[2021-10-10] MEDS: Trospium 20 MG TAB PO SCH ×2 (11:16→21:08)
[2021-10-10] MEDS: valACYclovir 500 MG TAB PO SCH ×3 (11:17→21:06)
[2021-10-10] MEDS: Acetaminophen 325 MG TAB PO PRN (21:06)
[2021-10-10] MEDS: Atorvastatin Calcium 10 MG TAB PO SCH (21:08)
[2021-10-10] MEDS: Cefepime 2 GM in Sodium Chloride 0.9% 100 ML IVPB SCH (23:16)
[2021-10-10] MEDS ORDERED: OLANZapine 10 MG VIAL IM SCH (23:45)
[2021-10-10] MEDS ORDERED: Sterile Water 10 ML VIAL FS PRN (23:45)
[2021-10-10] MEDS ORDERED: Calcium Carbonate 500 MG ChewTAB PO PRN (23:49)
[2021-10-11 04:48] LABS: #Basophils 0.1 thou/uL (0.0-0.2); #Eosinphils 0.3 thou/uL (0.0-0.7); #Lymphocytes 1.7 thou/uL (1.20-3.40); #Monocytes 0.9 thou/uL (0.11-0.59); #Neutrophils 5.1 thou/uL (1.40-6.50); %Basophils 1.1 % (0.0-1.0); %Eosinophils 4.2 % (0.0-10.0); %Monocytes 11.1 % (0.0-10.0); %Neutrophils 62.6 % (42.0-75.0); Hemoglobin 10.1 g/dL (14.0-18.0); Mean Corpuscular HGB CONC 32.5 g/dL (32.0-36.0); Mean Corpuscular Hemoglobin 34.3 pg (27.0-31.0); Mean Platelet Volume 6.1 fL (7.4-10.4); Platelet Count 294 thou/uL (130-400); RBC Distribution Width 13.2 % (11.5-14.5); Red Blood Cell (RBC) Count 2.95 mill/uL (4.70-6.10); White Blood Cell (WBC) Count 8.1 thou/uL (4.8-10.8)
[2021-10-11 05:05] LABS: Anion Gap 10 mmol/L (10-20); BUN (Urea Nitrogen) 20 mg/dL (8.4-25.7); Calc. Creatinine Clearance 105 mL/min (70-130); Calcium 8.4 mg/dL (7.8-10.44); Carbon Dioxide 22 mmol/L (23-31); Chloride 108 mmol/L (98-107); Estimated GFR 89; Glucose 89 mg/dL (83-110); Potassium 3.1 mmol/L (3.5-5.1); Sodium 137 mmol/L (136-145)
[2021-10-11] MEDS ORDERED: Potassium Chloride 20 MEQ TAB PO SCH (08:15)
[2021-10-11] MEDS: valACYclovir 500 MG TAB PO SCH ×3 (08:25→20:22)
[2021-10-11] MEDS: Trospium 20 MG TAB PO SCH ×2 (08:25→20:22)
[2021-10-11] MEDS: Aspirin Chewable 81 MG TAB PO SCH (08:29)
[2021-10-11] MEDS: Cefepime 2 GM in Sodium Chloride 0.9% 100 ML IVPB SCH (12:24)
[2021-10-11] MEDS: cefTRIAXone\\ROCEPHIN 2 GM in Sodium Chloride 0.9% 100 ML IVPB SCH (15:48)
[2021-10-11] MEDS: Acetaminophen 325 MG TAB PO PRN (20:21)
[2021-10-11] MEDS: Docusate 100 MG CAP PO SCH (20:22)
[2021-10-11] MEDS: Atorvastatin Calcium 10 MG TAB PO SCH (20:23)
[2021-10-12] MEDS ORDERED: Non-Formulary Item 1 EACH (Polyethylene Glycol 3350 [Miralax] 17 GM Powd.Pack) PO SCH (09:00)
[2021-10-12] MEDS: Trospium 20 MG TAB PO SCH ×2 (09:17→20:22)
[2021-10-12] MEDS: Polyethylene Glycol 3350 17 GM Packet PO SCH (09:17)
[2021-10-12] MEDS: Docusate 100 MG CAP PO SCH ×2 (09:18→20:22)
[2021-10-12] MEDS: valACYclovir 500 MG TAB PO SCH ×3 (09:18→20:22)
[2021-10-12] MEDS: Aspirin Chewable 81 MG TAB PO SCH (09:18)
[2021-10-12] MEDS: Vit A,C & E/Lutein/Minerals Tablet PO SCH (09:18)
[2021-10-12] MEDS: Multivitamin W/ Minerals 1 TAB PO SCH (09:18)
[2021-10-12] MEDS: cefTRIAXone\\ROCEPHIN 2 GM in Sodium Chloride 0.9% 100 ML IVPB SCH (15:43)
[2021-10-12] MEDS: Atorvastatin Calcium 10 MG TAB PO SCH (20:22)
[2021-10-13] MEDS: Vit A,C & E/Lutein/Minerals Tablet PO SCH (10:32)
[2021-10-13] MEDS: Multivitamin W/ Minerals 1 TAB PO SCH (10:32)
[2021-10-13] MEDS: valACYclovir 500 MG TAB PO SCH ×3 (10:32→20:34)
[2021-10-13] MEDS: Docusate 100 MG CAP PO SCH ×2 (10:32→20:33)
[2021-10-13] MEDS: Trospium 20 MG TAB PO SCH ×2 (10:32→20:34)
[2021-10-13] MEDS: Polyethylene Glycol 3350 17 GM Packet PO SCH (10:32)
[2021-10-13] MEDS: Aspirin Chewable 81 MG TAB PO SCH (10:32)
[2021-10-13] MEDS: cefTRIAXone\\ROCEPHIN 2 GM in Sodium Chloride 0.9% 100 ML IVPB SCH (16:14)
[2021-10-13 16:22] LABS: #Basophils 0.1 thou/uL (0.0-0.2); #Eosinphils 0.7 thou/uL (0.0-0.7); #Lymphocytes 1.9 thou/uL (1.20-3.40); #Monocytes 0.9 thou/uL (0.11-0.59); #Neutrophils 4.3 thou/uL (1.40-6.50); %Basophils 0.9 % (0.0-1.0); %Eosinophils 9.1 % (0.0-10.0); %Lymphocytes 23.8 % (21.0-51.0); %Monocytes 11.5 % (0.0-10.0); %Neutrophils 54.7 % (42.0-75.0); Hemoglobin 10.9 g/dL (14.0-18.0); Mean Corpuscular HGB CONC 32.4 g/dL (32.0-36.0); Mean Corpuscular Hemoglobin 33.9 pg (27.0-31.0); Mean Platelet Volume 5.9 fL (7.4-10.4); Platelet Count 300 thou/uL (130-400); RBC Distribution Width 12.9 % (11.5-14.5); Red Blood Cell (RBC) Count 3.23 mill/uL (4.70-6.10); White Blood Cell (WBC) Count 7.9 thou/uL (4.8-10.8)
[2021-10-13 16:44] LABS: ALT (SGPT) 12 U/L (8-55); AST (SGOT) 16 U/L (5-34); Albumin 2.7 g/dL (3.4-4.8); Alkaline Phosphatase 63 U/L (40-110); Anion Gap 10 mmol/L (10-20); BUN (Urea Nitrogen) 13 mg/dL (8.4-25.7); Bilirubin, Total 0.4 mg/dL (0.2-1.2); Calc. Creatinine Clearance 102 mL/min (70-130); Calcium 8.1 mg/dL (7.8-10.44); Carbon Dioxide 23 mmol/L (23-31); Chloride 106 mmol/L (98-107); Estimated GFR 89; Globulin 2.8 g/dL (2.4-3.5); Glucose 152 mg/dL (83-110); Potassium 3.4 mmol/L (3.5-5.1); Protein, Total 5.5 g/dL (5.8-8.1); Sodium 136 mmol/L (136-145)
[2021-10-13] MEDS: Atorvastatin Calcium 10 MG TAB PO SCH (20:34)
[2021-10-13] MEDS: Acetaminophen 325 MG TAB PO PRN (23:20)
[2021-10-14] MEDS ORDERED: hydrOXYzine 10 MG TAB PO SCH (02:30)
[2021-10-14] MEDS: valACYclovir 500 MG TAB PO SCH ×2 (11:57→17:28)
[2021-10-14] MEDS: AMOXicillin 250 MG CAP PO SCH ×2 (11:57→18:38)
[2021-10-14] MEDS: Aspirin Chewable 81 MG TAB PO SCH (11:57)
[2021-10-14] MEDS: Docusate 100 MG CAP PO SCH (11:57)
[2021-10-14] MEDS: Vit A,C & E/Lutein/Minerals Tablet PO SCH (11:58)
[2021-10-14] MEDS: Polyethylene Glycol 3350 17 GM Packet PO SCH (11:58)
[2021-10-14] MEDS: Trospium 20 MG TAB PO SCH (11:58)
[2021-10-14] MEDS: Multivitamin W/ Minerals 1 TAB PO SCH (11:58)
[2021-10-14 17:48] VITALS: BP 109/57; TEMP 98.8
== END 2021-10-14 19:11 | DRG 698 ==
LOC: ERS 10:11 → ERHOLD 13:13 → 2NO 14:33
PROVIDERS: ADMIT Internal Medicine; ATTEND Internal Medicine
PROC: 3E03329 Introduction of Other Anti-infective into Peripheral Vein, Percutaneous Approach (ICD-10-PCS; principal; 2021-10-09)
PROC: 3E1K78Z Irrigation of Genitourinary Tract using Irrigating Substance, Via Natural or Artificial Opening (ICD-10-PCS; 2021-10-09)
PROC: 0TWBX0Z Revision of Drainage Device in Bladder, External Approach (ICD-10-PCS; 2021-10-11)
DX: T83.511A Infection and inflammatory reaction due to indwelling urethral catheter, initial encounter (principal); Z66 Do not resuscitate; Z20.822 Contact with and (suspected) exposure to COVID-19; A41.4 Sepsis due to anaerobes; S37.23XA Laceration of bladder, initial encounter; N30.01 Acute cystitis with hematuria; F05 Delirium due to known physiological condition; Z16.24 Resistance to multiple antibiotics; F03.90 Unspecified dementia, unspecified severity, without behavioral disturbance, psychotic disturbance, mood disturbance, and anxiety; T83.021A Displacement of indwelling urethral catheter, initial encounter; N40.1 Benign prostatic hyperplasia with lower urinary tract symptoms; R33.8 Other retention of urine; I48.0 Paroxysmal atrial fibrillation; E78.5 Hyperlipidemia, unspecified; I10 Essential (primary) hypertension; B02.9 Zoster without complications; J44.9 Chronic obstructive pulmonary disease, unspecified; F41.9 Anxiety disorder, unspecified; I73.9 Peripheral vascular disease, unspecified; G62.9 Polyneuropathy, unspecified; Z96.653 Presence of artificial knee joint, bilateral; I87.2 Venous insufficiency (chronic) (peripheral); K21.9 Gastro-esophageal reflux disease without esophagitis; T83.090A Other mechanical complication of cystostomy catheter, initial encounter; Y84.6 Urinary catheterization as the cause of abnormal reaction of the patient, or of later complication, without mention of misadventure at the time of the procedure; Y33.XXXA Other specified events, undetermined intent, initial encounter; Z78.1 Physical restraint status; Z89.421 Acquired absence of other right toe(s); Z88.5 Allergy status to narcotic agent; Z79.899 Other long term (current) drug therapy; Z79.82 Long term (current) use of aspirin; Z90.49 Acquired absence of other specified parts of digestive tract; Z98.890 Other specified postprocedural states
CPT/HCPCS: 36415; 71045; 80048; 80053; 81003; 81015; 82550; 82553; 83605; 83735; 84484; 85025; 87040; 87077; 87086; 87149; 87186; 93005; 96361; 96365; 96375; J0692; J0696; J3370; J3490; U0003; U0005

== ENCOUNTER 2021-10-21 13:36 | Outpatient (CLI) | payer MEDICARE | END 2021-10-21 13:37 | disposition home or self-care (01) | LOC: ULT 13:36 | PROVIDERS: ATTEND Family Medicine | DX: I70.203 Unspecified atherosclerosis of native arteries of extremities, bilateral legs (principal) | CPT/HCPCS: 93923; U0003; U0005 ==

== ENCOUNTER 2021-12-14 07:14 | Emergency (ER) | payer MEDICARE, BC ==
[2021-12-14 07:40] LABS: #Basophils 0.1 thou/uL (0.0-0.2); #Lymphocytes 1.6 thou/uL (1.20-3.40); #Neutrophils 6.2 thou/uL (1.40-6.50); %Basophils 1.1 % (0.0-1.0); %Lymphocytes 16.3 % (21.0-51.0); %Monocytes 10.4 % (0.0-10.0); %Neutrophils 62.3 % (42.0-75.0); Hemoglobin 13.1 g/dL (14.0-18.0); Mean Corpuscular HGB CONC 31.9 g/dL (32.0-36.0); Mean Corpuscular Hemoglobin 30.8 pg (27.0-31.0); Mean Corpuscular Volume 96.4 fL (78.0-98.0); Mean Platelet Volume 6.4 fL (7.4-10.4); Platelet Count 300 thou/uL (130-400); RBC Distribution Width 14.4 % (11.5-14.5); Red Blood Cell (RBC) Count 4.24 mill/uL (4.70-6.10); White Blood Cell (WBC) Count 9.9 thou/uL (4.8-10.8)
[2021-12-14 08:07] LABS: ALT (SGPT) 14 U/L (8-55); AST (SGOT) 43 U/L (5-34); Albumin 3.5 g/dL (3.4-4.8); Alkaline Phosphatase 69 U/L (40-110); Anion Gap 16 mmol/L (10-20); BUN (Urea Nitrogen) 18 mg/dL (8.4-25.7); Bilirubin, Total 1.1 mg/dL (0.2-1.2); Calc. Creatinine Clearance 0 mL/min (70-130); Carbon Dioxide 20 mmol/L (23-31); Chloride 106 mmol/L (98-107); Estimated GFR 92; Globulin 3.2 g/dL (2.4-3.5); Glucose 118 mg/dL (83-110); Potassium 4.5 mmol/L (3.5-5.1); Protein, Total 6.7 g/dL (5.8-8.1); Sodium 137 mmol/L (136-145)
[2021-12-14 08:08] LABS: Acetaminophen Less than 10.0 mcg/mL (10.0-30.0); Alcohol Less than 10 mg/dL (Less than 10); Salicylate Less than 8.0 mg/dL (15.0-30.0)
[2021-12-14 10:43] LABS: Bilirubin Negative (Negative); Blood, Urine Large (Negative); Glucose, Urine (Dipstick) Negative (Negative); Ketone, Urine Trace mg/dL (Negative); Leukocyte Moderate (Negative); Nitrite Positive (Negative); Protein, Urine (Dipstick) 100 mg/dL (Neg-Trace); Urobilinogen 0.2 mg/dL (Less than 2)
[2021-12-14 10:44] LABS: Clarity Cloudy (Clear); Specific Gravity, Urine 1.024 (1.002-1.036)
[2021-12-14 10:49] LABS: Amphetamine Not Detected (NotDetected); Barbiturates Screen Not Detected (NotDetected); Benzodiazepine Screen Not Detected (NotDetected); Cocaine Metabolite Screen Not Detected (NotDetected); Methadone Not Detected (NotDetected); Methamphetamine Not Detected (NotDetected); Opiate Screen Detected (NotDetected); Oxycodone Screen Not Detected (NotDetected); Phencyclidine (PCP) Not Detected (NotDetected); THC/Cannabinoid Screen Not Detected (NotDetected); Tricyclic Screen Not Detected (NotDetected)
[2021-12-14 10:59] LABS: Bacteria/HPF 4+ HPF (None Seen); Squamous Epithelial 0-3 HPF (0-3); WBC/HPF Greater than 50 HPF (0-3)
== END 2021-12-14 13:09 ==
LOC: ERS 07:14
DX: N39.0 Urinary tract infection, site not specified (principal); R41.82 Altered mental status, unspecified; I10 Essential (primary) hypertension; E78.5 Hyperlipidemia, unspecified; Z79.82 Long term (current) use of aspirin; Z79.899 Other long term (current) drug therapy
CPT/HCPCS: 70450; 71045; 80053; 80306; 80307; 81003; 81015; 82140; 85025; 93005; 96360

== ENCOUNTER 2021-12-31 07:36 | Emergency (ER) | payer MEDICARE, BC ==
[2021-12-31 08:49] LABS: #Basophils 0.1 thou/uL (0.0-0.2); #Eosinphils 0.5 thou/uL (0.0-0.7); #Lymphocytes 1.2 thou/uL (1.20-3.40); #Monocytes 0.5 thou/uL (0.11-0.59); #Neutrophils 3.9 thou/uL (1.40-6.50); %Basophils 1.8 % (0.0-1.0); %Eosinophils 8.8 % (0.0-10.0); %Lymphocytes 20.1 % (21.0-51.0); %Monocytes 7.2 % (0.0-10.0); %Neutrophils 62.2 % (42.0-75.0); Hemoglobin 12.6 g/dL (14.0-18.0); Mean Corpuscular HGB CONC 31.8 g/dL (32.0-36.0); Mean Corpuscular Hemoglobin 31.1 pg (27.0-31.0); Mean Corpuscular Volume 97.9 fl (78.0-98.0); Mean Platelet Volume 6.1 fL (7.4-10.4); Platelet Count 379 thou/uL (130-400); RBC Distribution Width 15.5 % (11.5-14.5); Red Blood Cell (RBC) Count 4.05 mill/uL (4.70-6.10); White Blood Cell (WBC) Count 6.2 thou/uL (4.8-10.8)
[2021-12-31 09:09] LABS: ALT (SGPT) 12 U/L (8-55); AST (SGOT) 15 U/L (5-34); Alkaline Phosphatase 55 U/L (40-110); Anion Gap 11 mmol/L (10-20); BUN (Urea Nitrogen) 11 mg/dL (8.4-25.7); Bilirubin, Total 0.8 mg/dL (0.2-1.2); CRP (Inflammatory) 2.72 mg/dL (= or < 0.5); Calc. Creatinine Clearance 0 mL/min (70-130); Calcium 8.9 mg/dL (7.8-10.44); Carbon Dioxide 24 mmol/L (23-31); Chloride 105 mmol/L (98-107); Estimated GFR 95; Globulin 2.9 g/dL (2.4-3.5); Glucose 91 mg/dL (83-110); Potassium 3.9 mmol/L (3.5-5.1); Protein, Total 5.9 g/dL (5.8-8.1); Sodium 136 mmol/L (136-145)
[2021-12-31] MEDS ORDERED: Cefepime 2 GM VIAL ONE (09:13)
[2021-12-31] MEDS ORDERED: Vancomycin 1 GM/200 ML BAG ONE (10:32)
[2021-12-31] MEDS ORDERED: Acetaminophen 500 MG TAB ONE (10:32)
== END 2021-12-31 12:13 | disposition home or self-care (01) ==
LOC: ERS 07:36
DX: L03.114 Cellulitis of left upper limb (principal); I10 Essential (primary) hypertension; K21.9 Gastro-esophageal reflux disease without esophagitis; J44.9 Chronic obstructive pulmonary disease, unspecified
CPT/HCPCS: 36415; 80053; 83605; 85025; 86140; 87040; 96365; 96375; J0692; J3370

== ENCOUNTER 2022-02-17 12:28 | Inpatient (IN) | payer BC, MEDICARE ==
[2022-02-17] MEDS ORDERED: Cefepime 2 GM VIAL ONE (13:04)
[2022-02-17] MEDS ORDERED: Vancomycin HCl 500 MG VIAL ONE (13:04)
[2022-02-17] MEDS ORDERED: Vancomycin 1 GM/200 ML (FROZEN) BAG ONE (13:05)
[2022-02-17 13:29] LABS: #Basophils 0.1 thou/uL (0.0-0.2); #Eosinphils 0.3 thou/uL (0.0-0.7); #Lymphocytes 1.6 thou/uL (1.20-3.40); #Monocytes 0.8 thou/uL (0.11-0.59); %Basophils 0.8 % (0.0-1.0); %Eosinophils 2.7 % (0.0-10.0); %Lymphocytes 14.5 % (21.0-51.0); %Monocytes 7.2 % (0.0-10.0); %Neutrophils 74.8 % (42.0-75.0); Hemoglobin 12.4 g/dL (14.0-18.0); Mean Corpuscular HGB CONC 30.3 g/dL (32.0-36.0); Mean Corpuscular Hemoglobin 29.8 pg (27.0-31.0); Mean Corpuscular Volume 98.3 fl (78.0-98.0); Mean Platelet Volume 6.6 fL (7.4-10.4); Platelet Count 300 10x3/uL (130-400); RBC Distribution Width 15.9 % (11.5-14.5); Red Blood Cell (RBC) Count 4.18 mill/uL (4.70-6.10); White Blood Cell (WBC) Count 10.7 10x3/uL (4.8-10.8)
[2022-02-17 13:51] LABS: ALT (SGPT) 7 U/L (8-55); AST (SGOT) 15 U/L (5-34); Albumin 3.3 g/dL (3.4-4.8); Alkaline Phosphatase 81 U/L (40-110); Anion Gap 12 mmol/L (10-20); BUN (Urea Nitrogen) 19 mg/dL (8.4-25.7); Bilirubin, Total 0.9 mg/dL (0.2-1.2); CK (CPK) 34 U/L (30-200); Calc. Creatinine Clearance 0 mL/min (70-130); Calcium 8.9 mg/dL (7.8-10.44); Carbon Dioxide 26 mmol/L (23-31); Chloride 103 mmol/L (98-107); Estimated GFR 95; Globulin 2.9 g/dL (2.4-3.5); Glucose 118 mg/dL (83-110); Lipase 8 U/L (8-78); Potassium 3.8 mmol/L (3.5-5.1); Protein, Total 6.2 g/dL (5.8-8.1); Sodium 137 mmol/L (136-145)
[2022-02-17 14:06] LABS: Bacteria/HPF 4+ HPF (None Seen); Bilirubin Negative (Negative); Blood, Urine 3+ (Negative); Clarity Turbid (Clear); Glucose, Urine (Dipstick) Normal (Negative); Ketone, Urine 40 mg/dL (Negative); Leukocyte 500 Leu/uL (Negative); Nitrite 2+ (Negative); Protein, Urine (Dipstick) 100 mg/dL (Neg-Trace); RBC/HPF Greater than 50 HPF (0-3); Specific Gravity, Urine 1.029 (1.002-1.036); Squamous Epithelial None Seen HPF (0-3); Urobilinogen Normal mg/dL (Less than 2); WBC/HPF Greater than 50 HPF (0-3)
[2022-02-17] MEDS ORDERED: Iopamidol-370 76% 500 ML 1 ML ONE (15:51)
[2022-02-17] MEDS ORDERED: Morphine 4 MG/ML VIAL ONE (17:01)
[2022-02-17 19:08] VITALS: BMI 26.6
[2022-02-17] MEDS ORDERED: Vancomycin 1 GM in Premix Bag 1 BAG IVPB SCH (21:00)
[2022-02-17] MEDS ORDERED: Ondansetron PF 4 MG/2 ML Vial IVP PRN (22:16)
[2022-02-17] MEDS ORDERED: Bisacodyl 5 MG TAB PO PRN (22:16)
[2022-02-17] MEDS ORDERED: Nystatin Cream 15 GM TUBE TOP SCH (22:30)
[2022-02-17] MEDS: Vancomycin 1.5 GRAM/300 ML BAG 1.5 GM in Premix Bag 1 BAG IVPB SCH (23:24)
[2022-02-18] MEDS: Cefepime 2 GM in Sodium Chloride 0.9% 100 ML IVPB SCH ×2 (00:46→13:05)
[2022-02-18] MEDS: Acetaminophen 325 MG TAB PO PRN (06:04)
[2022-02-18 06:29] LABS: #Basophils 0.1 thou/uL (0.0-0.2); #Eosinphils 0.4 thou/uL (0.0-0.7); #Monocytes 0.8 thou/uL (0.11-0.59); #Neutrophils 4.2 thou/uL (1.40-6.50); %Basophils 1.2 % (0.0-1.0); %Lymphocytes 26.6 % (21.0-51.0); %Monocytes 10.6 % (0.0-10.0); %Neutrophils 56.8 % (42.0-75.0); Mean Corpuscular HGB CONC 31.2 g/dL (32.0-36.0); Mean Corpuscular Hemoglobin 30.4 pg (27.0-31.0); Mean Corpuscular Volume 97.2 fl (78.0-98.0); Mean Platelet Volume 6.1 fL (7.4-10.4); Platelet Count 297 10x3/uL (130-400); RBC Distribution Width 15.7 % (11.5-14.5); Red Blood Cell (RBC) Count 3.61 mill/uL (4.70-6.10); White Blood Cell (WBC) Count 7.4 10x3/uL (4.8-10.8)
[2022-02-18 07:05] LABS: Anion Gap 12 mmol/L (10-20); BUN (Urea Nitrogen) 21 mg/dL (8.4-25.7); Calc. Creatinine Clearance 138 mL/min (70-130); Calcium 8.5 mg/dL (7.8-10.44); Carbon Dioxide 21 mmol/L (23-31); Chloride 108 mmol/L (98-107); Estimated GFR 99; Glucose 94 mg/dL (83-110); Potassium 3.8 mmol/L (3.5-5.1); Sodium 137 mmol/L (136-145)
[2022-02-18] MEDS: Enoxaparin Sodium 40 MG/0.4 ML SYRINGE SC SCH (08:31)
[2022-02-18] MEDS: Nystatin Cream 15 GM TUBE TOP SCH ×2 (10:32→20:06)
[2022-02-18] MEDS: Morphine 4 MG/ML VIAL SLOW IVP PRN ×2 (11:02→18:26)
[2022-02-18] MEDS: Vancomycin 1.5 GRAM/300 ML BAG 1.5 GM in Premix Bag 1 BAG IVPB SCH ×2 (13:12→23:12)
[2022-02-18] MEDS ORDERED: Furosemide 40 MG/4 ML VIAL SLOW IVP SCH (13:45)
[2022-02-18] MEDS: traMADol HCl 50 MG TAB PO PRN (20:10)
[2022-02-18 23:40] LABS: Vancomycin, Trough 14.7 ug/mL
[2022-02-19] MEDS: Cefepime 2 GM in Sodium Chloride 0.9% 100 ML IVPB SCH ×2 (00:49→15:08)
[2022-02-19 07:18] LABS: #Basophils 0.1 thou/uL (0.0-0.2); #Eosinphils 0.7 thou/uL (0.0-0.7); #Lymphocytes 2.4 thou/uL (1.20-3.40); #Monocytes 1.1 thou/uL (0.11-0.59); #Neutrophils 5.5 thou/uL (1.40-6.50); %Basophils 1.2 % (0.0-1.0); %Eosinophils 6.9 % (0.0-10.0); %Lymphocytes 24.6 % (21.0-51.0); %Monocytes 11.1 % (0.0-10.0); %Neutrophils 56.2 % (42.0-75.0); Hemoglobin 11.6 g/dL (14.0-18.0); Mean Corpuscular HGB CONC 30.7 g/dL (32.0-36.0); Mean Corpuscular Hemoglobin 30.3 pg (27.0-31.0); Mean Corpuscular Volume 98.8 fl (78.0-98.0); Mean Platelet Volume 6.4 fL (7.4-10.4); Platelet Count 320 10x3/uL (130-400); RBC Distribution Width 15.9 % (11.5-14.5); Red Blood Cell (RBC) Count 3.83 mill/uL (4.70-6.10); White Blood Cell (WBC) Count 9.9 10x3/uL (4.8-10.8)
[2022-02-19 07:42] LABS: Anion Gap 13 mmol/L (10-20); BUN (Urea Nitrogen) 15 mg/dL (8.4-25.7); Calc. Creatinine Clearance 124 mL/min (70-130); Calcium 8.9 mg/dL (7.8-10.44); Carbon Dioxide 22 mmol/L (23-31); Chloride 104 mmol/L (98-107); Estimated GFR 96; Glucose 86 mg/dL (83-110); Magnesium 1.9 mg/dL (1.6-2.6); Potassium 3.2 mmol/L (3.5-5.1); Sodium 136 mmol/L (136-145)
[2022-02-19] MEDS: Furosemide 40 MG/4 ML VIAL SLOW IVP SCH (08:56)
[2022-02-19] MEDS: Nystatin Cream 15 GM TUBE TOP SCH ×2 (08:56→21:02)
[2022-02-19] MEDS: Enoxaparin Sodium 40 MG/0.4 ML SYRINGE SC SCH (08:56)
[2022-02-19] MEDS ORDERED: Potassium Chloride 20 MEQ TAB PO SCH (10:00)
[2022-02-19] MEDS: Vancomycin 1.5 GRAM/300 ML BAG 1.5 GM in Premix Bag 1 BAG IVPB SCH (13:02)
[2022-02-20] MEDS: Cefepime 2 GM in Sodium Chloride 0.9% 100 ML IVPB SCH ×3 (00:48→23:55)
[2022-02-20] MEDS: Vancomycin 1.5 GRAM/300 ML BAG 1.5 GM in Premix Bag 1 BAG IVPB SCH (01:39)
[2022-02-20] MEDS: Acetaminophen 325 MG TAB PO PRN ×2 (03:20→21:13)
[2022-02-20] MEDS: traMADol HCl 50 MG TAB PO PRN (03:21)
[2022-02-20] MEDS ORDERED: Potassium Chloride 20 MEQ TAB PO SCH (08:00)
[2022-02-20 08:26] LABS: #Basophils 0.1 thou/uL (0.0-0.2); #Eosinphils 0.7 thou/uL (0.0-0.7); #Lymphocytes 2.3 thou/uL (1.20-3.40); #Monocytes 0.9 thou/uL (0.11-0.59); #Neutrophils 3.8 thou/uL (1.40-6.50); %Basophils 1.5 % (0.0-1.0); %Eosinophils 9.2 % (0.0-10.0); %Lymphocytes 29.6 % (21.0-51.0); %Monocytes 10.9 % (0.0-10.0); %Neutrophils 48.9 % (42.0-75.0); Hemoglobin 11.2 g/dL (14.0-18.0); Mean Corpuscular HGB CONC 32.2 g/dL (32.0-36.0); Mean Corpuscular Hemoglobin 31.4 pg (27.0-31.0); Mean Corpuscular Volume 97.6 fl (78.0-98.0); Platelet Count 325 10x3/uL (130-400); RBC Distribution Width 15.9 % (11.5-14.5); Red Blood Cell (RBC) Count 3.57 mill/uL (4.70-6.10); White Blood Cell (WBC) Count 7.9 10x3/uL (4.8-10.8)
[2022-02-20 08:45] LABS: Anion Gap 12 mmol/L (10-20); BUN (Urea Nitrogen) 12 mg/dL (8.4-25.7); Calc. Creatinine Clearance 131 mL/min (70-130); Calcium 8.9 mg/dL (7.8-10.44); Carbon Dioxide 25 mmol/L (23-31); Chloride 103 mmol/L (98-107); Estimated GFR 97; Glucose 88 mg/dL (83-110); Magnesium 1.8 mg/dL (1.6-2.6); Potassium 3.5 mmol/L (3.5-5.1); Sodium 136 mmol/L (136-145)
[2022-02-20] MEDS: Furosemide 40 MG/4 ML VIAL SLOW IVP SCH (10:01)
[2022-02-20] MEDS: Enoxaparin Sodium 40 MG/0.4 ML SYRINGE SC SCH (10:01)
[2022-02-20] MEDS: Nystatin Cream 15 GM TUBE TOP SCH ×2 (10:06→20:34)
[2022-02-21 07:20] LABS: #Basophils 0.1 thou/uL (0.0-0.2); #Eosinphils 0.8 thou/uL (0.0-0.7); #Lymphocytes 2.2 thou/uL (1.20-3.40); #Neutrophils 3.5 thou/uL (1.40-6.50); %Basophils 1.7 % (0.0-1.0); %Lymphocytes 29.1 % (21.0-51.0); %Monocytes 13.4 % (0.0-10.0); %Neutrophils 45.8 % (42.0-75.0); Hemoglobin 11.8 g/dL (14.0-18.0); Mean Corpuscular HGB CONC 30.8 g/dL (32.0-36.0); Mean Corpuscular Hemoglobin 30.2 pg (27.0-31.0); Mean Corpuscular Volume 98.3 fl (78.0-98.0); Mean Platelet Volume 6.4 fL (7.4-10.4); Platelet Count 355 10x3/uL (130-400); RBC Distribution Width 16.1 % (11.5-14.5); White Blood Cell (WBC) Count 7.7 10x3/uL (4.8-10.8)
[2022-02-21 07:57] LABS: Anion Gap 15 mmol/L (10-20); BUN (Urea Nitrogen) 12 mg/dL (8.4-25.7); Calc. Creatinine Clearance 131 mL/min (70-130); Carbon Dioxide 22 mmol/L (23-31); Chloride 102 mmol/L (98-107); Estimated GFR 97; Glucose 90 mg/dL (83-110); Potassium 3.7 mmol/L (3.5-5.1); Sodium 135 mmol/L (136-145)
[2022-02-21] MEDS: Nystatin Cream 15 GM TUBE TOP SCH (10:01)
[2022-02-21] MEDS: Furosemide 40 MG/4 ML VIAL SLOW IVP SCH (10:09)
[2022-02-21 12:48] VITALS: BP 118/78; TEMP 97.6
== END 2022-02-21 12:47 | DRG 871 ==
LOC: ERS 12:28 → T4-B 18:23 → T4-A 02-20 23:16
PROVIDERS: ADMIT Internal Medicine; ATTEND Family Medicine
DX: A41.9 Sepsis, unspecified organism (principal); J18.9 Pneumonia, unspecified organism; J96.01 Acute respiratory failure with hypoxia; T83.518A Infection and inflammatory reaction due to other urinary catheter, initial encounter; N39.0 Urinary tract infection, site not specified; Z66 Do not resuscitate; F03.90 Unspecified dementia, unspecified severity, without behavioral disturbance, psychotic disturbance, mood disturbance, and anxiety; Z20.822 Contact with and (suspected) exposure to COVID-19; N40.0 Benign prostatic hyperplasia without lower urinary tract symptoms; I10 Essential (primary) hypertension; J44.9 Chronic obstructive pulmonary disease, unspecified; I25.10 Atherosclerotic heart disease of native coronary artery without angina pectoris; Y84.6 Urinary catheterization as the cause of abnormal reaction of the patient, or of later complication, without mention of misadventure at the time of the procedure; E78.5 Hyperlipidemia, unspecified; F41.9 Anxiety disorder, unspecified; K21.9 Gastro-esophageal reflux disease without esophagitis; Z96.653 Presence of artificial knee joint, bilateral; Z96.643 Presence of artificial hip joint, bilateral; Z88.5 Allergy status to narcotic agent; Z79.82 Long term (current) use of aspirin; Z79.899 Other long term (current) drug therapy
CPT/HCPCS: 36415; 71045; 71275; 80048; 80053; 80202; 81003; 81015; 82550; 83605; 83690; 83735; 83880; 84484; 85025; 85379; 87040; 87077; 87081; 87086; 87186; 93005; 94640; 96365; 96366; 96367; 96375; 97139; J0692; J1650; J1940; J1956; J2270; J3370; J3370-JW; J3490; J7620; Q9967; U0003; U0005